=== PATIENT | female | born 1950 | race Caucasian/White ===

== ENCOUNTER 2020-07-08 13:16 | Outpatient (CLI) | payer MEDICARE, SELFPAY | END 2020-07-08 13:17 | disposition home or self-care (01) | LOC: ANHCOVIDVC 13:16 | PROVIDERS: PCP Family Medicine | DX: Z23 Encounter for immunization (principal) | CPT/HCPCS: 0001A; 91300 ==

== ENCOUNTER 2020-07-29 13:25 | Outpatient (CLI) | payer MEDICARE, SELFPAY | END 2020-07-29 13:26 | disposition home or self-care (01) | LOC: ANHCOVIDVC 13:26 | PROVIDERS: PCP Family Medicine | DX: Z23 Encounter for immunization (principal) | CPT/HCPCS: 0002A; 91300 ==

== ENCOUNTER 2022-10-07 13:59 | Emergency (ER) | payer MEDICARE, SELFPAY ==
--- NOTE | ~2022-10-07 | CT_ITS ---
EXAMINATION: CT abdomen pelvis wo con DATE: 10/07/2022 15:57 INDICATION: Right lower quadrant abdominal pain. TECHNIQUE: Computed tomography (CT) of the abdomen and pelvis was performed without intravenous contr ast. Automated exposure control and iterative reconstruction technique were employed. The dose-length product was 249.37 mGy-cm. COMPARISON: CT abdomen and pelvis 10/25/2017 FINDINGS: The visualized portions of the lung bases demonstrate mild atelectasis. No pleural effusion . The heart size is normal. No pericardial effusion. The liver is normal. There are changes of cholec ystectomy. The spleen, pancreas, and adrenal glands are normal. There are cysts in the kidneys measur ing up to 11 mm on the left. There is moderate right hydronephrosis and hydroureter. There is moderat e left hydronephrosis and hydroureter. An ileal conduit is noted. There is diverticulosis of the colo n without evidence of diverticulitis. The appendix is fluid-filled and dilated to 13 mm. There is fat stranding around the appendix. There are no pathologically enlarged lymph nodes. There is no free in traperitoneal fluid. There is mild chronic height loss of T11 and T12 vertebral bodies. There is a he aling insufficiency fracture of left parasymphyseal pubis. IMPRESSION: 1. Acute appendicitis. 2. Moderate bilateral hydronephrosis and hydroureter with ileal conduit. Reviewed, dictated and finalized at location A.
[2022-10-07 14:16] VITALS: BP 136/60; PULSE 103; RESP 16; TEMP 37.1; O2SAT 99
[2022-10-07] MEDS: MORPHINE SULFATE (*CRX) 2 MG/ML INJ IV PUSH (15:27)
[2022-10-07] MEDS: ACETAMINOPHEN 325 MG TABLET 650 MG PO (15:27)
[2022-10-07] MEDS: SODIUM CHLORIDE 0.9% IV 1,000 ML 999 ML IV CONT (15:27)
[2022-10-07 15:33] LABS: Basophils Percent Auto 0.3 % (0.2-1.2); Eosinophils Percent Auto 0.1 % (0-4.4); Hematocrit 31.4 % (37.0-47.0); Hemoglobin 10.2 g/dL (12.0-15.0); Immature Granulocyte Absolute 0.12 K/mm3 (0.00-0.031); Immature Granulocyte Percent A 0.8 % (0-0.5); Lymphocytes Percent Auto 6.3 % (18.3-44.2); Mean Corpuscular HGB Conc 32.5 g/dl (32-36); Mean Corpuscular Volume 89.2 fl (80-100); Monocytes Absolute Auto 1.2 K/mm3 (0.1-0.6); Monocytes Percent Auto 8.5 % (2.6-8.5); Neutrophils Absolute Auto 12.1 K/mm3 (1.3-6.7); Platelet Count Result 202 k/mm3 (150-375); Red Blood Count 3.52 M/mm3 (4.2-5.4); Red Cell Distribution Width 13.2 % (11.5-14.5); White Blood Count 14.4 K/mm3 (4.5-10.0)
[2022-10-07 15:48] LABS: Alanine Aminotransferase 11 U/L (6-35); Albumin Level 4.4 g/dL (3.5-5.1); Alkaline Phosphatase 86 U/L (38-126); Anion Gap 10 mmol/L (8-16); Aspartate Amino Transferase 29 U/L (14-36); Bilirubin,Total 0.5 mg/dL (0.2-1.3); Blood Urea Nitrogen 32 mg/dL (7-17); Calcium 9.3 mg/dL (8.4-10.2); Carbon Dioxide 17 mmol/L (22-30); Chloride 104 mmol/L (98-107); Estimated Glomerular Filt Rate 23; Glucose 177 mg/dL (65-110); Potassium 4.4 mmol/L (3.4-5.0); Sodium 131 mmol/L (137-145)
--- NOTE | 2022-10-07 16:08 | ED.GENADULT ---
HPI - General Adult General Chief complaint: Unspecified Stated complaint: right side pain post bone biopsy Time Seen by Provider: 10/07/22 14:32 History of Present Illness HPI narrative: Patient is a 72-year-old female with history of bladder cancer and rectal cancer who presents the ER with right lower quadrant abdominal pain. Pain worsening over the last 2 days. Located right lower quadrant worse with lifting her right leg. Patient has a ileal conduit. She has had a cystectomy and radiation to the pelvis. She recently had a pelvic biopsy of her pubic bone due to concern for a occult fracture versus new malignancy. She has results pending for tomorrow. Patient reports fever this morning. No chills. She has not treated her pain or fever. She initially went to urgent care and was referred here. Related Data Home Medications Medication Instructions Recorded Confirmed aspirin 81 mg tablet,delayed 81 mg PO DAILY 06/17/22 06/17/22 release (Adult Low Dose Aspirin) cholecalciferol (vitamin D3) 25 25 mcg PO DAILY 06/17/22 06/17/22 mcg (1,000 unit) capsule ferrous sulfate 325 mg (65 mg 325 mg PO BID 06/17/22 06/17/22 iron) tablet pantoprazole 40 mg tablet,delayed tablet PO 06/17/22 06/17/22 release vitamin B complex 1 tablet PO DAILY 06/17/22 06/17/22 Allergies Allergy/AdvReac Type Severity Reaction Status Date / Time lisinopril Allergy Unknown Cough Verified 10/07/22 16:28 Review of Systems Review of Systems: All systems reviewed & are unremarkable except as noted in HPI and below Constitutional: Constitutional: Denies chills and Reports fever(s) Cardiovascular: Cardiovascular: Denies chest pain and Denies radiating jaw, neck or arm pain Respiratory: Respiratory: Denies cough, Denies dyspnea and Denies wheezing Gastrointestinal: Gastrointestinal: Reports abdominal pain, Denies diarrhea, Denies nausea and Denies vomiting PMF Past Medical History Medical History (Updated 10/07/22 @ 17:56 by Flo Rosales MD) 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 Dyslipidemia Essential (primary) hypertension History of malignant neoplasm of anus Hypothyroidism, unspecified Type 2 diabetes mellitus with diabetic cataract Surgical History Surgical History (Updated 10/07/22 @ 17:51 by Flo Rosales MD) History of total cystectomy History of urostomy Family History Family History Sibling Family history of malignant neoplasm of ovary Social History Social History (Updated 06/17/22 @ 10:48 by Jorge Jaeger MA) Smoking status: Never smoker Second hand tobacco smoke exposure: No Alcohol intake: never Substance use: never Lack of Transportation: No Lack of Food: Never True Current Housing: I Have Housing Concerned About Future Housing: No Difficulty Paying Gas/Electric Bills: No Difficulty Paying for Meds: No Currently Unemployed: No Education: High School Diploma/GED Difficulty w/ Childcare or Family Care: No Spiritual care concerns: No Exam Narrative: GENERAL: Well-appearing, well-nourished, and in no acute distress. HEAD: Normocephalic, atraumatic. EYES: PERRL and EOMI. ENT: Mucous membranes moist. CHEST: Clear to auscultation. No respiratory distress. HEART: Regular rate and rhythm. No murmur heard. Normal peripheral pulses. ABDOMEN: Soft, tender palpation right lower quadrant with guarding, nondistended, normal active bowel sounds. EXTREMITIES: Normal range of motion. No edema. SKIN: Warm, dry, no rash. NEURO: Alert and oriented x3. PSYCH: Normal mood and affect. Course Course Emergency Course: Patient resting comfortably. General surgery consulted. Dr. Rosales has been in the patient's room and spoke with her. She has received IV Zosyn. Patient wishes to leave the hospital AMA says she can go home and feed her animals and arrange f
[2022-10-07] MEDS: PIPERACILLN/TAZ 3.375GM/NS50ML 3.375 GM/50 ML BAG IVPB (16:36)
--- NOTE | 2022-10-07 16:44 | PC.NURSE ---
Dr Rosales here to assess patient
[2022-10-07 17:12] VITALS: BP 131/66; PULSE 98; RESP 20; O2SAT 98
--- NOTE | 2022-10-07 17:13 | PC.NURSE ---
IV removed, patient signed AMA papers. Will return within the hour and call manager data warehouse for direct admission. patient verbalized understanding
--- NOTE | 2022-10-07 17:35 | PM.IMHP ---
H&P: HPI History of Present Illness Date/Time: 10/07/22 17:35 Chief Complaint: Right-sided abdominal pain Narrative: Patient is a 72-year-old woman who day before yesterday noticed a sharp pain in the left lower quadrant that lasted only a few seconds. This then moved to the mid abdomen. She has chronic pain in the mid abdomen anyway and this did not really seem out of the ordinary for what she has experienced before. Then yesterday, the pain moved to the right side of the abdomen and was associated with fever of 101?. The pain was persistent and she came to the emergency room today. Also noteworthy is that she had a bone marrow biopsy done a day or 2 before the onset of this pain. The puncture site for the bone biopsy was in the left suprapubic area. Patient has not had further fever and no nausea or vomiting. She has been afebrile in the emergency room but did have some tachycardia in the low 100s. Her white blood cell count was elevated to 14,400. She had a CT scan of the abdomen and pelvis that showed acute appendicitis with a 13 mm appendix but no appendicoliths. There was some periappendiceal stranding. I reviewed the CT scan and by my review this appears to be a retrocecal appendix. Patient has had significant past medical history. In the she had anal canal cancer treated with then I regimen of chemo radiation therapy to the pelvic area. In 2017 she was found to have cancer of the urinary bladder which extended to include the urethra. In January of 2018 she underwent radical cystectomy with anterior pelvic exenteration as the bladder cancer invaded her vagina. 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 She had some additional radiation therapy as there was a positive margin at the resection but not extensive radiation therapy due to her prior pelvic radiation therapy for anal canal cancer. Patient is admitted now for treatment of appendicitis. Review of Systems Review of Systems: All systems reviewed & are unremarkable except as noted in HPI and below (HPI and those items noted below) Constitutional: Constitutional: Reports as per HPI and Reports fever(s) Cardiovascular: Cardiovascular: Denies chest pain, Denies diaphoresis, Denies dyspnea and Denies paroxysmal nocturnal dyspnea Respiratory: Respiratory: Denies chest congestion, Denies cough and Denies dyspnea Gastrointestinal: Gastrointestinal: Reports as per HPI Genitourinary: Genitourinary: Reports as per HPI Integumentary/Breasts: Skin/Breast: Denies lesions and Denies rash PMFSH Past Medical History Medical History (Updated 10/07/22 @ 17:56 by Flo Rosales MD) 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 Dyslipidemia Essential (primary) hypertension History of malignant neoplasm of anus Hypothyroidism, unspecified Type 2 diabetes mellitus with diabetic cataract Surgical History Surgical History (Updated 10/07/22 @ 17:51 by Flo Rosales MD) History of total cystectomy History of urostomy Family History Family History Sibling Family history of malignant neoplasm of ovary Social History Social History (Updated 06/17/22 @ 10:48 by Jorge Jaeger MA) Smoking status: Never smoker Second hand tobacco smoke exposure: No Alcohol intake: never Meds Home Medications and Allergies Home Medications Medication Instructions Recorded Confirmed Type alcohol swabs 1 pad topical BID #200 07/28/19 06/17/22 Rx blood glucose control, normal #1 07/28/19 06/17/22 Rx (Accu-Chek SmartView Control Solution) blood sugar diagnostic (Accu-Chek #200 07/28/19 06/17/22 Rx Ginette Plus test strips) blood-glucose meter (Accu-Chek #1 07/28/19 06/17/22 Rx Ginette Plus Meter) lancets (Accu-Chek Softclix #200 07/28/19 06/17/22 Rx Lancets) aspirin 81 mg tablet,delayed 81 mg PO DAILY 06/17/22 06/17/22 His
== END 2022-10-07 17:14 | disposition left against medical advice (07) ==
PROVIDERS: Emergency Provider Emergency Medicine; PCP Family Medicine
DX: K35.80 Unspecified acute appendicitis (principal); C67.9 Malignant neoplasm of bladder, unspecified; E11.22 Type 2 diabetes mellitus with diabetic chronic kidney disease; I12.9 Hypertensive chronic kidney disease with stage 1 through stage 4 chronic kidney disease, or unspecified chronic kidney disease; N18.4 Chronic kidney disease, stage 4 (severe); E78.5 Hyperlipidemia, unspecified; E11.36 Type 2 diabetes mellitus with diabetic cataract; H26.9 Unspecified cataract; Z93.6 Other artificial openings of urinary tract status; Z90.6 Acquired absence of other parts of urinary tract; Z85.048 Personal history of other malignant neoplasm of rectum, rectosigmoid junction, and anus; Z92.21 Personal history of antineoplastic chemotherapy; Z92.3 Personal history of irradiation; Z79.82 Long term (current) use of aspirin
CPT/HCPCS: 36415; 74176; 80053; 85025; 96361; 96365; 96375; 99284; A9270; J2270; J2543; J7030

== ENCOUNTER 2022-10-07 20:29 | Observation (INO) | payer MEDICARE, SELFPAY ==
--- NOTE | ~2022-10-07 | CT_ITS ---
EXAMINATION: CT abdomen pelvis wo con DATE: 10/08/2022 08:07 INDICATION: Abdominal pain. TECHNIQUE: Computed tomography (CT) of the abdomen and pelvis was performed without intravenous contr ast. Automated exposure control and iterative reconstruction technique were employed. The dose-length product was 224.33 mGy-cm. COMPARISON: CT abdomen and pelvis 10/07/2022, 10/25/2017 FINDINGS: The visualized portions of the lung bases demonstrate mild atelectasis. There is a chronic 5 mm nodule in right lower lobe, likely benign. No pleural effusion. The heart size is normal. There are coronary artery calcifications. No pericardial effusion. The liver is normal. There are changes o f cholecystectomy. The spleen, pancreas, and adrenal glands are normal. There are cysts in the kidney s measuring up to 11 mm on the left. There is mild right hydronephrosis and hydroureter. There is mil d left hydronephrosis and hydroureter. There is an ileal conduit. There is diverticulosis of the colo n without evidence of diverticulitis. The appendix is fluid-filled and dilated to 13 mm with surround ing fat stranding, consistent with appendicitis. There are no pathologically enlarged lymph nodes. Th ere is no free intraperitoneal fluid. There is a healing insufficiency fracture of left parasymphysea l pubis. There are chronic bilateral L5 pars defects. There is mild chronic height loss of T11 and T1 2 vertebral bodies. IMPRESSION: 1. Stable acute appendicitis. 2. Mild bilateral hydronephrosis and hydroureter with interval improvement. Ileal conduit. Reviewed, dictated and finalized at location A. IMPRESSION: 1. Stable acute appendicitis. 2. Mild bilateral hydronephrosis and hydroureter with interval improvement. Ile al conduit.
[2022-10-07 19:45] VITALS: BP 102/85; PULSE 98; RESP 17; TEMP 36.2; O2SAT 100; BMI 21.1
--- NOTE | 2022-10-07 20:05 | ADMGEN ---
This patient, Caitlin Nixon, was admitted to 2 Medical Room 240-01. Patient/family oriented to hospital policies and general routines including ID bracelet, bed and alarms, visiting hours, pain management, procedures, bathroom and other care routines, personal items, smoking policy, room service/diet, and visiting hours. Information on how to activate the Rapid Response Team has been discussed. Patient/Family are encouraged to report perceived risks to care and to ask questions if they do not understand what they are told or what they should do.
--- NOTE | 2022-10-07 21:00 | PM.IMCN ---
Assessment and Plan Assessment and plan (1) Appendicitis: Qualifiers: Acute appendicitis type: unspecified acute appendicitis type Appendicitis type: acute appendicitis Qualified Code(s): K35.80 - Unspecified acute appendicitis Code(s): K37 - Unspecified appendicitis Status: Inactive Assessment and Plan: Management per primary service. Currently patient receiving IV fluid, IV antibiotics and pain management. (2) Essential (primary) hypertension: Code(s): I10 - Essential (primary) hypertension Status: Acute Assessment and Plan: Patient is acutely ill. Hold blood pressure medication for BP less than 140/90. (3) DM type 2 causing CKD stage 4: Qualifiers: Diabetes mellitus group home insulin use: without medical terminologist use Qualified Code(s): E11.22 - Type 2 diabetes mellitus with diabetic chronic kidney disease; N18.4 - Chronic kidney disease, stage 4 (severe) Code(s): E11.22 - Type 2 diabetes mellitus with diabetic chronic kidney disease; N18.4 - Chronic kidney disease, stage 4 (severe) Status: Chronic Assessment and Plan: Currently patient is NPO for bowel rest. Will monitor the Accu-Chek every 6 hours. Anti diabetic medications currently on hold. Monitor Accu-Chek. Accu-Cheks in the 1 99 range. Blood glucose in the 133-177 range. (4) Dyslipidemia: Code(s): E78.5 - Hyperlipidemia, unspecified Status: Acute Assessment and Plan: Resume statin when oral intake is allowed. (5) History of urostomy: Code(s): Z98.890 - Other specified postprocedural states Status: Chronic Assessment and Plan: Urostomy is patent with clear urine in bag. (6) History of total cystectomy: Code(s): Z90.6 - Acquired absence of other parts of urinary tract Status: Chronic (7) History of malignant neoplasm of anus: Code(s): Z85.048 - Personal history of other malignant neoplasm of rectum, rectosigmoid junction, and anus Status: Chronic (8) Other specified hypothyroidism: Code(s): E03.8 - Other specified hypothyroidism Status: Acute Assessment and Plan: Resume levothyroxine when oral intake is allowed. (9) Chronic GERD: Code(s): K21.9 - Gastro-esophageal reflux disease without esophagitis Status: Acute Assessment and Plan: Give Pepcid IV while NPO. (10) CKD (chronic kidney disease): Code(s): N18.9 - Chronic kidney disease, unspecified Status: Acute Assessment and Plan: Baseline kidney function stable with creatinine in the 2-2.1 range over the past 3 years. Avoid nephrotoxic medication. Please renally dose medication. Monitor intake and output closely. Consider starting bicarbonate at supplement when oral intake is allowed. Patient has metabolic acidosis with a carbon dioxide of 18. Plan DVT prophylaxis: Rojas vasquez. Code status full code. [facility] Data of Consult Consult date: 10/08/22 Requesting Physician: Flo Rosales MD Primary Care Provider: Sharon Nye MD Consult Narrative Reason for consult: management of medical conditions Narrative: Caitlin Nixon is a 72 year old female with a past medical history including but not limtied to HTN, T2DM, dyslipidemia, hypothyroidism, anal cancer s/p chemothrapy and radiation, bladder cancer s/p radical cystectomy with anterior pelvic exenteration -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 CT scan is confirming acute appendicitis. Patient is scheduled for appendectomy and currently being managed with NPO, IV fluids, IV antibiotics. Originally the patient presented on the day before yesterday a sharp pain in the left lower quadrant that lasted only a few seconds.? This then moved to the mid abdomen.? This is similar to her usual chronic mid abdominal pain. Yesterday , the pain moved to the right side of the abdomen and was assoc
[2022-10-07] MEDS: SODIUM CHLORIDE 0.9% IV 1,000 ML 100 ML IV CONT (22:35)
[2022-10-07] MEDS: PIPERACILLIN/TAZ 2.25G/NS 50ML 2.25 GM/50 ML BAG IVPB (22:35)
[2022-10-07] MEDS: FAMOTIDINE 20 MG/2 ML VIAL IV PUSH (22:36)
[2022-10-07 23:50] LABS: Glucose Point of Care 199 mg/dl (65-105)
[2022-10-08 04:58] LABS: Hematocrit 27.5 % (37.0-47.0); Mean Corpuscular HGB Conc 32.7 g/dl (32-36); Mean Corpuscular Hemoglobin 29.4 pg (26-34); Mean Corpuscular Volume 89.9 fl (80-100); Mean Platelet Volume 10.1 fl (7.4-10.4); Platelet Count Result 193 k/mm3 (150-375); Red Blood Count 3.06 M/mm3 (4.2-5.4); Red Cell Distribution Width 13.2 % (11.5-14.5); White Blood Count 10.1 K/mm3 (4.5-10.0)
[2022-10-08 05:16] VITALS: BP 113/48; PULSE 80; RESP 17; TEMP 36.8; O2SAT 100
[2022-10-08 05:25] LABS: Glucose Point of Care 120 mg/dl (65-105)
[2022-10-08 05:25] LABS: Iron 23 ug/dL (37-170)
[2022-10-08] MEDS: PIPERACILLIN/TAZ 2.25G/NS 50ML 2.25 GM/50 ML BAG IVPB ×3 (05:25→21:41)
[2022-10-08 05:35] LABS: Percent Iron Saturation 13 % (20-50)
[2022-10-08 05:44] LABS: Free T4 Free Thyroxine 1.49 ng/mL (0.78-2.19)
[2022-10-08 06:03] LABS: Alanine Aminotransferase 9 U/L (6-35); Albumin Level 3.4 g/dL (3.5-5.1); Alkaline Phosphatase 73 U/L (38-126); Anion Gap 8 mmol/L (8-16); Aspartate Amino Transferase 22 U/L (14-36); Bilirubin,Total 0.3 mg/dL (0.2-1.3); Blood Urea Nitrogen 31 mg/dL (7-17); Calcium 8.6 mg/dL (8.4-10.2); Carbon Dioxide 18 mmol/L (22-30); Chloride 111 mmol/L (98-107); Estimated CRCL calculation 18 ml/min; Estimated Glomerular Filt Rate 23; Glucose 133 mg/dL (65-110); Potassium 4.2 mmol/L (3.4-5.0); Sodium 137 mmol/L (137-145)
--- NOTE | 2022-10-08 07:14 | PM.IMPN ---
Progress Note: A&P Assessment and Plan (1) Appendicitis with nonoperative management: Code(s): K37 - Unspecified appendicitis Status: Acute Assessment and Plan: Patient admitted for acute appendicitis felt to be retrocecal by General surgery Dr. Rosales. Due to complicated abdominal surgery history shared decision making between surgeon and patient has yielded decision to opt non operative management at this time. Patient is on IV fluids and IV antibiotics. She will be allowed a diet today. (2) DM type 2 causing CKD stage 4: Qualifiers: Diabetes mellitus jail insulin use: without terminal make up operator use Qualified Code(s): E11.22 - Type 2 diabetes mellitus with diabetic chronic kidney disease; N18.4 - Chronic kidney disease, stage 4 (severe) Code(s): E11.22 - Type 2 diabetes mellitus with diabetic chronic kidney disease; N18.4 - Chronic kidney disease, stage 4 (severe) Status: Chronic Assessment and Plan: Baseline creatinine around 2. Will dose insulin via sliding and renally dose medications (3) History of urostomy: Code(s): Z98.890 - Other specified postprocedural states Status: Chronic Assessment and Plan: Urostomy patent draining clear yellow urine (4) History of malignant neoplasm of anus: Code(s): Z85.048 - Personal history of other malignant neoplasm of rectum, rectosigmoid junction, and anus Status: Chronic Assessment and Plan: Significant prior abdominal surgery with bladder removal due to prior anal cancer. For this reason surgery would be complicated means of treating appendicitis. Plan Continue IV antibiotics per primary service Advanced diet as tolerated per primary service Renally dose medications and avoid nephrotoxic when possible Time Spent With Patient Time with patient: 25 - 35 minutes Subjective Date/time seen: 10/08/22 07:14 Interval history: This is a 72-year-old female patient with a complicated past surgical history of abdominal surgeries related to cancer who was admitted to the hospital under the surgery service for acute appendicitis with hospitalist consult requested for medical management. Patient has elected to attempt IV antibiotic treatment of appendicitis and defer surgery at this time. He currently complains only of mild aching pain in her right lower abdomen. Patient has ileal conduit due to bladder resection prior surgeries. Patient notes normal urine this time. Patient denies any fever or chills. She denies any acute concerns. Review of Systems Review of Systems: All systems reviewed & are unremarkable except as noted in HPI and below Exam Narrative: GENERAL: This is a thin, chronically-ill female in no acute distress. Patient is in a good mood and talkative/appreciative. HEENT: Pupils are equal, round, and reactive to light. Conjunctivae are pink. HEART: Cardiac exam reveals a regular rhythm and rate without murmur or gallop. There is no carotid or abdominal bruits. LUNGS: Clear to auscultation bilaterally; no wheezing, crackles or rhonchi. ABDOMEN: Reveals an ileal conduit with clear yellow urine in bag; normoactive bowel sounds, soft, nontender, no organomegaly. Mild right lower quadrant tenderness to palpation without rebound or guarding. EXTREMITIES: Lower extremities reveal no edema, 2+ pulses. NEUROLOGIC: AAOX3; grossly non focal. ? Objective Data Vital Signs Vital Signs: Vital Signs - 24 hr 10/07/22 19:45 10/07/22 20:00 10/08/22 05:16 Temperature 36.2 C L 36.8 C Pulse Rate 98 80 Respiratory Rate 17 17 Blood Pressure 102/85 113/48 L Pulse Oximetry 100 100 Oxygen Delivery Room Air Intake/Output Intake/Output: Intake & Output 10/05/22 10/06/22 10/07/22 10/08/22 23:59 23:59 23:59 23:59 Intake Total 100 Output Total 1050 Balance -950 Meds/Results Medications: Active Medications Generic Name Dose Route Start Last Admin Trade Name Freq PRN Reason St
--- NOTE | 2022-10-08 08:04 | PM.PNGS ---
Progress Note: A&P Assessment and Plan (1) Appendicitis with nonoperative management: Code(s): K37 - Unspecified appendicitis Status: Acute Assessment and Plan: Feels better and white blood cell count is slightly lower today. Continue IV Zosyn. Will start clear liquid diet. If continues to improve, can probably go home this weekend. Recheck labs and exam again tomorrow. Hospitalist consultation appreciated. (2) History of external beam radiation therapy: Code(s): Z92.3 - Personal history of irradiation Status: Chronic (3) History of urostomy: Code(s): Z98.890 - Other specified postprocedural states Status: Chronic (4) DM type 2 causing CKD stage 4: Qualifiers: Diabetes mellitus long term care social worker insulin use: without group home use Qualified Code(s): E11.22 - Type 2 diabetes mellitus with diabetic chronic kidney disease; N18.4 - Chronic kidney disease, stage 4 (severe) Code(s): E11.22 - Type 2 diabetes mellitus with diabetic chronic kidney disease; N18.4 - Chronic kidney disease, stage 4 (severe) Status: Chronic Subjective Subjective Date/Time Seen: 10/08/22 08:04 Patient reports: no new complaints, feels better, pain is less and afebrile Review of Systems Review of Systems: All systems reviewed & are unremarkable except as noted in HPI and below (HPI) Exam Const: General: comfortable and no acute distress Orientation/consciousness: patient oriented x3 GI: Inspection: non-distended, scaphoid, scar, no visible herniation and other (Urostomy right lower quadrant with urine in bag) GI Palp: Yes Soft to palpation, Yes Tenderness to palpation present (GI) (Less tender than yesterday), No Guarding due to palpation present (GI) and No Rebound tenderness present Auscultation: normal bowel sounds Neuro: General: patient oriented x3 and no focal motor deficits Extrem: General: no calf tenderness and no edema Psych: Affect: normal affect Insight: Good insight present (Psych) Judgement: Good judgement present (Psych) Objective Data Vital Signs Vital Signs: Vital Signs - 24 hr 10/07/22 19:45 10/07/22 20:00 10/08/22 05:16 Temperature 36.2 C L 36.8 C Pulse Rate 98 80 Respiratory Rate 17 17 Blood Pressure 102/85 113/48 L Pulse Oximetry 100 100 Oxygen Delivery Room Air Intake/Output Intake/Output: Intake & Output 10/05/22 10/06/22 10/07/22 10/08/22 23:59 23:59 23:59 23:59 Intake Total 100 Output Total 1050 Balance -950 Meds/Results Medications: Active Medications Generic Name Dose Route Start Last Admin Trade Name Freq PRN Reason Stop Dose Admin Acetaminophen 650 mg 10/07/22 20:41 Acetaminophen 650 Mg Suppository RECTAL Q6H PRN Mild Pain (1-3) or Fever Aspirin 81 mg 10/08/22 09:00 Aspirin 81 Mg Enteric Tablet PO DAILY DESTINY Dextrose 12.5 gm 10/07/22 20:40 Dextrose 50% 25 Gm/50 Ml Syringe IV PUSH PRN PRN Hypoglycemia Protocol Enoxaparin Sodium 40 mg 10/08/22 09:00 Enoxaparin 40 Mg/0.4 Ml Syringe SUB-Q DAILY DESTINY Fentanyl Citrate 25 mcg 10/07/22 20:38 Fentanyl Citrate Inj (*Crx) 100 Mcg/2 Ml Vial IV PUSH Q4H PRN Pain Rated 7-10 Fentanyl Citrate 12.5 mcg 10/07/22 20:39 Fentanyl Citrate Inj (*Crx) 100 Mcg/2 Ml Vial IV PUSH Q4H PRN Pain Rated 7-10 Glucagon 1 mg 10/07/22 20:40 Glucagon For Inj 1 Mg Vial IM PRN PRN Hypoglycemia Protocol Glucose 15 gm 10/07/22 20:40 Glucose Oral Gel 15 Gm Of Glucse In 37.5 Gm Tube PO PRN PRN Hypoglycemia Protocol Dextrose 1,000 mls @ 100 mls/hr 10/07/22 20:40 Dextrose 5% 1,000 Ml IVPB PRN PRN Hypoglycemia Protocol Sodium Chloride 1,000 mls @ 80 mls/hr 10/07/22 20:50 10/07/22 22:35 Normal Saline Iv IV CONT 100 mls/hr .[id number] DESTINY Administration Piperacillin Sod/Tazobactam Sod 2.25 gm in 50 mls @ 100 mls/hr 10/08/22 06:
[2022-10-08] MEDS: PANTOPRAZOLE 40 MG TABLET PO (08:39)
[2022-10-08] MEDS: ASPIRIN 81 MG ENTERIC TABLET PO (08:39)
[2022-10-08] MEDS: VALSARTAN 80 MG TABLET BY MOUTH (08:39)
[2022-10-08] MEDS: LEVOTHYROXINE SODIUM 125 MCG TABLET BY MOUTH (08:40)
[2022-10-08] MEDS: ENOXAPARIN 30 MG/0.3 ML SYRINGE SUB-Q (08:40)
[2022-10-08] MEDS: SODIUM CHLORIDE 0.9% IV 1,000 ML 80 ML IV CONT (10:00)
[2022-10-08 11:58] LABS: Glucose Point of Care 129 mg/dl (65-105)
[2022-10-08 14:35] VITALS: BP 106/49; PULSE 73; RESP 17; TEMP 36.9; O2SAT 99
[2022-10-08] MEDS: FERROUS SULFATE 324 MG TABLET PO (16:57)
[2022-10-08 18:40] LABS: Glucose Point of Care 107 mg/dl (65-105)
[2022-10-08 19:20] VITALS: BP 122/48; PULSE 77; RESP 18; TEMP 36.6; O2SAT 100
[2022-10-09 00:15] LABS: Glucose Point of Care 99 mg/dl (65-105)
[2022-10-09] MEDS: SODIUM CHLORIDE 0.9% IV 1,000 ML 80 ML IV CONT (01:48)
[2022-10-09 05:05] LABS: Hematocrit 25.9 % (37.0-47.0); Hemoglobin 8.1 g/dL (12.0-15.0); Mean Corpuscular HGB Conc 31.3 g/dl (32-36); Mean Corpuscular Hemoglobin 28.6 pg (26-34); Mean Corpuscular Volume 91.5 fl (80-100); Platelet Count Result 177 k/mm3 (150-375); Red Blood Count 2.83 M/mm3 (4.2-5.4); Red Cell Distribution Width 13.3 % (11.5-14.5); White Blood Count 6.5 K/mm3 (4.5-10.0)
[2022-10-09 05:19] LABS: Anion Gap 5 mmol/L (8-16); Blood Urea Nitrogen 23 mg/dL (7-17); Calcium 8.6 mg/dL (8.4-10.2); Carbon Dioxide 18 mmol/L (22-30); Chloride 116 mmol/L (98-107); Estimated CRCL calculation 17 ml/min; Estimated Glomerular Filt Rate 22; Glucose 96 mg/dL (65-110); Potassium 4.6 mmol/L (3.4-5.0); Sodium 139 mmol/L (137-145)
[2022-10-09] MEDS: PIPERACILLIN/TAZ 2.25G/NS 50ML 2.25 GM/50 ML BAG IVPB ×3 (05:43→21:59)
[2022-10-09] MEDS: LEVOTHYROXINE SODIUM 125 MCG TABLET BY MOUTH (05:43)
[2022-10-09 05:53] VITALS: BP 123/52; PULSE 69; RESP 18; TEMP 36.4; O2SAT 100
[2022-10-09 06:14] LABS: Glucose Point of Care 99 mg/dl (65-105)
[2022-10-09 08:00] VITALS: O2SAT 99
[2022-10-09] MEDS: ATORVASTATIN 10 MG TABLET PO (08:08)
[2022-10-09] MEDS: ASPIRIN 81 MG ENTERIC TABLET PO (08:08)
[2022-10-09] MEDS: FERROUS SULFATE 324 MG TABLET PO ×2 (08:09→17:01)
[2022-10-09] MEDS: VALSARTAN 80 MG TABLET BY MOUTH (08:09)
[2022-10-09] MEDS: PANTOPRAZOLE 40 MG TABLET PO (08:09)
[2022-10-09] MEDS: ENOXAPARIN 30 MG/0.3 ML SYRINGE SUB-Q (08:09)
[2022-10-09] MEDS: VITAMIN B COMPLEX CAPSULE 1 CAP PO (08:09)
[2022-10-09] MEDS: CHOLECALCIFEROL 1,000 UNITS TABLET 1000 UNITS PO (08:09)
--- NOTE | 2022-10-09 09:17 | PM.IMPN ---
Progress Note: A&P Assessment and Plan (1) Appendicitis with nonoperative management: Code(s): K37 - Unspecified appendicitis Status: Acute Assessment and Plan: Patient admitted for acute appendicitis felt to be retrocecal by General surgery Dr. Rosales.? Due to complicated abdominal surgery history shared decision making between surgeon and patient has yielded decision to opt non operative management at this time.? Patient is on IV fluids and IV antibiotics.? Patient has developed diarrhea for which loperamide and probiotic have been ordered. Diet advanced to low carb diabetic diet. (2) Anemia: Code(s): D64.9 - Anemia, unspecified Status: Acute Assessment and Plan: H&H drop from 10.2/31.4 on admit to 8.1/25.9 today. Patient asymptomatic with no external bleeding. Ordered guiac stools and additional labs. Consider transfusion if continues to drop. (3) DM type 2 causing CKD stage 4: Qualifiers: Diabetes mellitus terminal clerk insulin use: without terminal clerk use Qualified Code(s): E11.22 - Type 2 diabetes mellitus with diabetic chronic kidney disease; N18.4 - Chronic kidney disease, stage 4 (severe) Code(s): E11.22 - Type 2 diabetes mellitus with diabetic chronic kidney disease; N18.4 - Chronic kidney disease, stage 4 (severe) Status: Chronic Assessment and Plan: Baseline creatinine around 2.? Will dose insulin via sliding and renally dose medications. (4) History of urostomy: Code(s): Z98.890 - Other specified postprocedural states Status: Chronic Assessment and Plan: Urostomy patent draining clear yellow urine (5) Diarrhea: Qualifiers: Diarrhea type: unspecified type Qualified Code(s): R19.7 - Diarrhea, unspecified Code(s): R19.7 - Diarrhea, unspecified Status: Acute Assessment and Plan: Patient upset about diarrhea and asking for anti diarrheal. Loperamide ordered. Probiotic ordered. Discussion held with patient that antibiotics may be worsening diarrhea and she understands the importance of continued antibiotic therapy. She denies any fever or abdominal pain and white blood cell count is stable unlikely to be C diff. (6) History of malignant neoplasm of anus: Code(s): Z85.048 - Personal history of other malignant neoplasm of rectum, rectosigmoid junction, and anus Status: Chronic Assessment and Plan: Significant prior abdominal surgery with bladder removal due to prior anal cancer.? For this reason surgery would be complicated means of treating appendicitis. Plan Continue antibiotics per primary service Investigate cause of drop in hemoglobin and hematocrit including checking guaiac of next stools Advanced diet as tolerated per primary service with new orders for low carb diabetic diet initiated today Renally dose medications and avoid nephrotoxic meds when possible Time Spent With Patient Time with patient: 25 - 35 minutes Subjective Date/time seen: 10/09/22 09:17 Interval history: This morning the patient seems very upset regarding the dietary offering see while she has been on a liquid diet. Patient states that everything they tried to send her has too many carbohydrates and she likes to keep her diabetes under control to preserve her to renal function. Also noted on morning labs was a decrease in hemoglobin hematocrit without obvious source of bleeding. Patient notes that she developed multiple episodes of diarrhea 3 times yesterday and twice so far today. She does not believe these have blood in them and they are not black. Patient was also upset at her IV line had infiltrated and her clothes were missing. Her clothes were later found locked in a cabinet in her room which helped her feel better. Overall patient states that her abdominal pain is decreased she has fever chills no nausea or vomiting. She is requesting anti diarrheal medication. She is aware she needs to continue IV antibiotics at t
[2022-10-09] MEDS: LOPERAMIDE HCL 2 MG CAPSULE PO (09:41)
--- NOTE | 2022-10-09 11:17 | PM.PNGS ---
Progress Note: A&P Assessment and Plan (1) Appendicitis with nonoperative management: Code(s): K37 - Unspecified appendicitis Status: Acute Assessment and Plan: CT scan done yesterday showed appendicitis without change. No worse. Clinically patient is much improved. Has no abdominal tenderness. White blood cell count is normal. She is up and around and active. She tolerated clear liquids well. Her only complaint is diarrhea as noted below. This could be a consequence of appendicitis or of antibiotic therapy. She is not having frequent stools just loose stools. Will watch for now. She is also anemic and this is being evaluated by the hospitalist. Will advance to diabetic diet but low carb per her wishes. Continue to follow serial exam labs and any imaging and may be needed. Hopefully will be able to be discharged this weekend on oral antibiotics. (2) Diarrhea: Qualifiers: Diarrhea type: unspecified type Qualified Code(s): R19.7 - Diarrhea, unspecified Code(s): R19.7 - Diarrhea, unspecified Status: Acute Assessment and Plan: Loose stools but not particularly frequent. A total of 5 including yesterday. Probably a consequence of the appendicitis and should resolve. Advise taking 1 or 2 Imodium with each diarrheal stool. (3) DM type 2 causing CKD stage 4: Qualifiers: Diabetes mellitus mcfp insulin use: without mcfp use Qualified Code(s): E11.22 - Type 2 diabetes mellitus with diabetic chronic kidney disease; N18.4 - Chronic kidney disease, stage 4 (severe) Code(s): E11.22 - Type 2 diabetes mellitus with diabetic chronic kidney disease; N18.4 - Chronic kidney disease, stage 4 (severe) Status: Chronic (4) History of urostomy: Code(s): Z98.890 - Other specified postprocedural states Status: Chronic (5) History of external beam radiation therapy: Code(s): Z92.3 - Personal history of irradiation Status: Chronic Subjective Subjective Date/Time Seen: 10/09/22 11:17 Patient reports: feels better, pain is less (No abdominal pain, abdomen feels fine), tolerating liquids well, diarrhea (2 diarrheal stools today, 3 yesterday) and afebrile Review of Systems Review of Systems: All systems reviewed & are unremarkable except as noted in HPI and below (HPI) Exam Const: General: comfortable, no acute distress, alert, awake and Physically active Nutritional Appearance: thin Orientation/consciousness: patient oriented x3 GI: Inspection: non-distended, scaphoid, scar, no visible herniation and other (Urostomy working well) GI Palp: Yes Soft to palpation, No Tenderness to palpation present (GI), No Guarding due to palpation present (GI), No Palpable mass present and No Rebound tenderness present Auscultation: normoactive bowel sounds Neuro: General: patient oriented x3 and no focal motor deficits Extrem: General: no calf tenderness and no edema Psych: Affect: normal affect Insight: Good insight present (Psych) Judgement: Good judgement present (Psych) Objective Data Vital Signs Vital Signs: Vital Signs - 24 hr 10/08/22 14:35 10/08/22 19:20 10/08/22 20:00 Temperature 36.9 C 36.6 C Pulse Rate 73 77 Respiratory Rate 17 18 Blood Pressure 106/49 L 122/48 L Pulse Oximetry 99 100 Oxygen Delivery Room Air 10/09/22 05:53 Temperature 36.4 C L Pulse Rate 69 Respiratory Rate 18 Blood Pressure 123/52 L Pulse Oximetry 100 Oxygen Delivery Intake/Output Intake/Output: Intake & Output 10/06/22 10/07/22 10/08/22 10/09/22 23:59 23:59 23:59 23:59 Intake Total 4650 1560 Output Total 1840 750 Balance 2810 810 Meds/Results Medications: Active Medications Generic Name Dose Route Start Last Admin Trade Name Freq PRN Reason Stop Dose Admin Acetaminophen 500 mg 10/09/22 11:12 Acetaminophen 500 Mg Tablet PO Q6H PRN Mild Pain (1-3) or Fever Hydrocodone Bitart/Acetaminophen 1
[2022-10-09 11:37] LABS: IFOB Positive Control Positive; Immunochemical Fecal Occult Bl Negative (N)
[2022-10-09 12:33] LABS: Glucose Point of Care 83 mg/dl (65-105)
[2022-10-09] MEDS: ACIDOPHILUS/BULGARICUS CHEWABLE TABLET 1 TABLET PO ×3 (13:24→21:58)
[2022-10-09 14:22] VITALS: BP 111/52; PULSE 83; RESP 18; TEMP 36.6; O2SAT 99
[2022-10-09] MEDS: LOPERAMIDE HCL 2 MG CAPSULE 4 MG PO (15:47)
--- NOTE | 2022-10-09 15:47 | PM.IMCN ---
Assessment and Plan Assessment and plan (1) Appendicitis with nonoperative management: Code(s): K37 - Unspecified appendicitis Status: Acute Assessment and Plan: Patient admitted for acute appendicitis felt to be retrocecal by General surgery Dr. Rosales.? Due to complicated abdominal surgery history shared decision making between surgeon and patient has yielded decision to opt non operative management at this time.? Patient is on IV fluids and IV antibiotics.? Patient has developed diarrhea for which loperamide and probiotic have been ordered. Diet advanced to low carb diabetic diet. (2) Anemia: Code(s): D64.9 - Anemia, unspecified Status: Acute Assessment and Plan: H&H drop from 10.2/31.4 on admit to 8.1/25.9 today. Patient asymptomatic with no external bleeding. Ordered guiac stools and additional labs. Consider transfusion if continues to drop. (3) DM type 2 causing CKD stage 4: Qualifiers: Diabetes mellitus mcc insulin use: without remote computer terminal operator use Qualified Code(s): E11.22 - Type 2 diabetes mellitus with diabetic chronic kidney disease; N18.4 - Chronic kidney disease, stage 4 (severe) Code(s): E11.22 - Type 2 diabetes mellitus with diabetic chronic kidney disease; N18.4 - Chronic kidney disease, stage 4 (severe) Status: Chronic Assessment and Plan: Baseline creatinine around 2.? Will dose insulin via sliding and renally dose medications. (4) History of urostomy: Code(s): Z98.890 - Other specified postprocedural states Status: Chronic Assessment and Plan: Urostomy patent draining clear yellow urine (5) Diarrhea: Qualifiers: Diarrhea type: unspecified type Qualified Code(s): R19.7 - Diarrhea, unspecified Code(s): R19.7 - Diarrhea, unspecified Status: Acute Assessment and Plan: Patient upset about diarrhea and asking for anti diarrheal. Loperamide ordered. Probiotic ordered. Discussion held with patient that antibiotics may be worsening diarrhea and she understands the importance of continued antibiotic therapy. She denies any fever or abdominal pain and white blood cell count is stable unlikely to be C diff. (6) History of malignant neoplasm of anus: Code(s): Z85.048 - Personal history of other malignant neoplasm of rectum, rectosigmoid junction, and anus Status: Chronic Assessment and Plan: Significant prior abdominal surgery with bladder removal due to prior anal cancer.? For this reason surgery would be complicated means of treating appendicitis. Plan Continue antibiotics per primary service Investigate cause of drop in hemoglobin and hematocrit including checking guaiac of next stools Advanced diet as tolerated per primary service with new orders for low carb diabetic diet initiated today Renally dose medications and avoid nephrotoxic meds when possible HPI Data of Consult Consult date: 10/09/22 Requesting Physician: lFo Rosales MD Primary Care Provider: Sharon Nye MD Consult Narrative Narrative: Caitlin Nixon is a 72 year old female w/ medical history including but not limtied to HTN, T2DM, dyslipidemia, hypothyroidism, anal cancer s/p chemothrapy and radiation, bladder cancer s/p radical cystectomy with anterior pelvic exenteration -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 CT scan is confirming acute appendicitis. Patient is scheduled for appendectomy and currently being managed with NPO, IV fluids, IV antibiotics. Originally the patient presented on the day before yesterday a sharp pain in the left lower quadrant that lasted only a few seconds.? This then moved to the mid abdomen.? This is similar to her usual chronic mid abdominal pain. Yesterday , the pain moved to the right side of the abdomen and was associated with fever of 101?.? The pain was persistent and she came to the emergency room tod
[2022-10-09] MEDS: SODIUM CHLORIDE 0.9% IV 1,000 ML 50 ML IV CONT (19:15)
[2022-10-09 20:40] VITALS: BP 113/55; PULSE 71; RESP 16; TEMP 36.4; O2SAT 99
[2022-10-09 23:59] LABS: Glucose Point of Care 120 mg/dl (65-105)
[2022-10-10] MEDS: LOPERAMIDE HCL 2 MG CAPSULE 4 MG PO ×4 (04:38→22:35)
[2022-10-10 05:13] VITALS: BP 130/57; PULSE 65; RESP 16; TEMP 36.6; O2SAT 99
[2022-10-10 05:33] LABS: Hematocrit 24.4 % (37.0-47.0); Hemoglobin 7.6 g/dL (12.0-15.0); Mean Corpuscular HGB Conc 31.1 g/dl (32-36); Mean Corpuscular Hemoglobin 28.6 pg (26-34); Mean Corpuscular Volume 91.7 fl (80-100); Mean Platelet Volume 10.1 fl (7.4-10.4); Platelet Count Result 173 k/mm3 (150-375); Red Blood Count 2.66 M/mm3 (4.2-5.4); Red Cell Distribution Width 13.3 % (11.5-14.5); White Blood Count 5.2 K/mm3 (4.5-10.0)
[2022-10-10 05:45] LABS: Anion Gap 7 mmol/L (8-16); Blood Urea Nitrogen 22 mg/dL (7-17); Calcium 8.5 mg/dL (8.4-10.2); Carbon Dioxide 16 mmol/L (22-30); Chloride 115 mmol/L (98-107); Estimated CRCL calculation 15 ml/min; Estimated Glomerular Filt Rate 19; Glucose 105 mg/dL (65-110); Sodium 138 mmol/L (137-145)
[2022-10-10] MEDS: PIPERACILLIN/TAZ 2.25G/NS 50ML 2.25 GM/50 ML BAG IVPB (06:00)
[2022-10-10] MEDS: LEVOTHYROXINE SODIUM 125 MCG TABLET BY MOUTH (06:00)
[2022-10-10 06:09] LABS: Glucose Point of Care 108 mg/dl (65-105)
[2022-10-10 06:58] LABS: Folic Acid > 20.0 ng/mL (2.76->20)
[2022-10-10] MEDS: SODIUM BICARBONATE 8.4% 50 MEQ/50 ML SYRINGE IV PUSH (07:49)
[2022-10-10] MEDS: IRON SUCROSE COMPLEX 200 MG in SODIUM CHLORIDE 0.9% IV 50 ML 120 MG IVPB (08:25)
[2022-10-10] MEDS: CHOLECALCIFEROL 1,000 UNITS TABLET 1000 UNITS PO (08:29)
[2022-10-10] MEDS: ACIDOPHILUS/BULGARICUS CHEWABLE TABLET 1 TABLET PO ×4 (08:29→20:46)
[2022-10-10 08:30] VITALS: RESP 16; O2SAT 99
[2022-10-10] MEDS: ATORVASTATIN 10 MG TABLET PO (08:30)
[2022-10-10] MEDS: SODIUM BICARBONATE TAB 650 MG TABLET PO ×2 (08:30→16:37)
[2022-10-10] MEDS: PANTOPRAZOLE 40 MG TABLET PO (08:30)
[2022-10-10] MEDS: VALSARTAN 80 MG TABLET BY MOUTH (08:30)
[2022-10-10] MEDS: VITAMIN B COMPLEX CAPSULE 1 CAP PO (08:30)
[2022-10-10] MEDS: FERROUS SULFATE 324 MG TABLET PO ×2 (08:30→16:36)
--- NOTE | 2022-10-10 10:16 | PM.DS ---
DS: Admitting Diagnosis Discharge Date 10/10/22 Admitting Diagnosis acute appendicitis DS: Discharge Diagnosis Discharge Diagnosis (1) Acute appendicitis: Code(s): K35.80 - Unspecified acute appendicitis Status: Acute Assessment and Plan: treated conservatively with IV antibiotics, patient doing well, exam and labs normalized, home with p.o. antibiotics times 10 days, follow-up 2 weeks (2) Essential (primary) hypertension: Code(s): I10 - Essential (primary) hypertension Status: Acute Assessment and Plan: stable, continue home medications (3) DM type 2 causing CKD stage 4: Qualifiers: Diabetes mellitus long-term insulin use: without long-term use Qualified Code(s): E11.22 - Type 2 diabetes mellitus with diabetic chronic kidney disease; N18.4 - Chronic kidney disease, stage 4 (severe) Code(s): E11.22 - Type 2 diabetes mellitus with diabetic chronic kidney disease; N18.4 - Chronic kidney disease, stage 4 (severe) Status: Chronic Assessment and Plan: stable, continue home meds and diabetic diet (4) History of malignant neoplasm of anus: Code(s): Z85.048 - Personal history of other malignant neoplasm of rectum, rectosigmoid junction, and anus Status: Chronic Assessment and Plan: stable (5) 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 Given the complexity of her previous history, decision was made to proceed with conservative management with IV antibiotics. The patient was subsequently admitted to the surgical service and started on Zosyn. Over her hospital course, her abdominal exam normalized and is now completely benign. Her diet was slowly advanced and at the time of her discharge she was tolerating a diabetic diet without issue. The patient does have a history chronic diarrhea and reports this is normal for her. The patient will be discharged at this time with p.o. antibiotics for an additional 10 days. She will follow up with Dr. Rosales in 2 weeks. Status at Discharge Functional status at discharge: independent ambulation Overall status at discharge: patient is back to baseline Time Spent with Patient Time attestation: Total time spent providing and/or coordinating discharge services:30 minutes Time spent: Less than 30 minutes Exam Const: General: cooperative, comfortable and no acute distress Resp: Auscultation: clear to auscultation bilaterally Cardio: Rate: regular rate Rhythm: regular rhythm GI: Inspection: normal to inspection and non-distended GI Palp: No abdominal tenderness, Yes Soft to palpation, No Tenderness to palpation present (GI), No Guarding due to palpation present (GI) and No Rigid due to palpation DS: Data Data Completed and Pending Labs on day of discharge: Labs from last 24 hours 10/10/22 10/10/22 10/09/22 05:59 05:02 23:46 WBC 5.2 RBC 2.66 L Hgb 7.6 L Hct 24.4 L MCV 91.7 MCH 28.6 MCHC 31.1 L RDW 13.3 Plt Count 173 MPV 10.1 Sodium 138 Potassium 4.0 Chloride 115 H Carbon Dioxide 16 L Anion Gap 7 L BUN 22 H Creatinine 2.50 H Estim Creat Clear Calc 15 Estimated GFR 19 L Glucose 105 POC Capillary Glucose 108 H 120 H Calcium 8.5 Vitamin B12 381.0 Folate > 20.0 H Stl Occult Blood (IFOB) 10/09/22 10/09/22 12:23 11:10 WBC RBC Hgb Hct MCV MCH MCHC RDW Plt Count MPV Sodium Potassium Chloride Carbon Dioxide Anion Gap BUN Cr
--- NOTE | 2022-10-10 11:16 | PM.IMPN ---
Progress Note: A&P Assessment and Plan (1) Appendicitis with nonoperative management: Code(s): K37 - Unspecified appendicitis Status: Acute Assessment and Plan: Patient cleared by Surgery team, will discharge on Cipro 500 mg BID and Flagyl 375 mg BID for 10 days. Patient to see Dr. Rosales in clinic in 2 weeks. Will discontinue IV antibiotics (Zosyn likely contributing to declining renal function) and start oral antibiotics as prescribed by Surgery service. (2) Anemia: Qualifiers: Anemia type: iron deficiency Iron deficiency anemia type: unspecified iron deficiency Qualified Code(s): D50.9 - Iron deficiency anemia, unspecified Code(s): D64.9 - Anemia, unspecified Status: Acute Assessment and Plan: Iron deficiency anemia and anemia of chronic illness, no suspected source of bleeding, negative Hemoccult. H&H continues to decline, currently 7.6/24.4. Ordered IV iron infusion, continue oral iron replacement. Patient not wanting blood transfusion at this time if can be avoided. Will check labs in afternoon and morning. (3) DM type 2 causing CKD stage 4: Qualifiers: Diabetes mellitus intermediate insulin use: without intermodal customer service use Qualified Code(s): E11.22 - Type 2 diabetes mellitus with diabetic chronic kidney disease; N18.4 - Chronic kidney disease, stage 4 (severe) Code(s): E11.22 - Type 2 diabetes mellitus with diabetic chronic kidney disease; N18.4 - Chronic kidney disease, stage 4 (severe) Status: Chronic Assessment and Plan: Sugars well controlled on sliding scale and dietary discretion. Renal function noted to be declining with current BUN 22, Cr 2.5 and estimated creatinine clearance 15. Zosyn stopped and changed to oral antibiotics Cipro/Flagyl. Urine eosinophils and urine electrolytes sent. Nephrology consulted, appreciate recommendations/guidance. (4) Diarrhea: Qualifiers: Diarrhea type: unspecified type Qualified Code(s): R19.7 - Diarrhea, unspecified Code(s): R19.7 - Diarrhea, unspecified Status: Acute Assessment and Plan: Chronic diarrhea, improving with loperamide use ordered by Surgery team. Hemoccult negative. 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 No site concerns. (6) History of malignant neoplasm of anus: Code(s): Z85.048 - Personal history of other malignant neoplasm of rectum, rectosigmoid junction, and anus Status: Chronic Assessment and Plan: Prior complex abdominal surgeries is reason for medical management of acute appendicitis. Chronic diarrhea as result of prior bowel resection. Subjective Date/time seen: 10/10/22 11:16 Interval history: This is a 72-year-old female patient admitted to the hospital for medical management of acute appendicitis. She is a type 2 diabetic with chronic kidney disease and urostomy in place due to multiple abdominal surgeries from cancer. patient reports that she feels completely well today was evaluated by surgery and planned to discharge on oral antibiotics ciprofloxacin 500 mg b.i.d. and metronidazole 375 mg b.i.d.. Review of labs this morning show serum creatinine increased to 2.5 and hemoglobin decreased to 7.6. Patient denies any bleeding and has had Hemoccult-negative diarrhea for 2 days. Abdominal pain from appendicitis has completely resolved. She reports no tenderness regardless of how hard you press on her belly. Patient states normal amount of clear yellow urine in urostomy. Patient disappointed that lab results have changed so much and are delaying her discharge home. Review of Systems Review of Systems: All systems reviewed & are unremarkable except as noted in HPI and below Exam Narrative: GENERAL: This is a thin, chronically-il
[2022-10-10] MEDS: CIPROFLOXACIN 500 MG TAB PO ×2 (11:41→20:47)
[2022-10-10 11:45] LABS: Creatinine Urine 47.1 mg/dL; Total Protein Urine Random 49 mg/dL; Ur Ttl Prot Creatinine Ratio 1.04 mg/mg (0-0.20)
[2022-10-10 11:46] LABS: Potassium Urine Random 13.6 meq/L; Sodium Urine Random 88 meq/L
[2022-10-10 11:54] LABS: Eosinophil Urine Rare % (None Seen); Urine Eos QC 2nd Tech Confirmed
--- NOTE | 2022-10-10 12:04 | PM.CNNEP ---
Assessment and Plan Assessment and plan (1) JIGAR (acute kidney injury): Code(s): N17.9 - Acute kidney failure, unspecified Status: Acute Assessment and Plan: is this JIGAR or just random fluctuations in baseline kidney function? perhaps this is just secondary to her resolving infection (appendicitis) urine testing noted: rare urine eosinophils (but since from urostomy bag, question validity) urine electrolytes are nonprerena moderate proteinuria UA not done (but once again, accuracy of results maybe skewed by urostomy) holding ARB check renal ultrasound follow repeat labs (2) Chronic kidney disease, stage IV (severe): Code(s): N18.4 - Chronic kidney disease, stage 4 (severe) Status: Chronic Assessment and Plan: baseline creatinine around 1.8 - 2.2mg/dl since 2019 presumably due to HTN, DM, and possibly bladder cancer however, has not follow-up with Dr. Sotomayor in the last several years is there an element of CKD progression(?) (3) Appendicitis: Qualifiers: Acute appendicitis type: unspecified acute appendicitis type Appendicitis type: acute appendicitis Qualified Code(s): K35.80 - Unspecified acute appendicitis Code(s): K37 - Unspecified appendicitis Status: Inactive Assessment and Plan: responded to conservative therapy Surgery following (4) Essential (primary) hypertension: Code(s): I10 - Essential (primary) hypertension Status: Acute Assessment and Plan: reasonable control ARB dosage decreased follow trend of hemodynamics (5) Metabolic acidosis: Code(s): E87.20 - Acidosis, unspecified Status: Chronic Assessment and Plan: presumably secondary to CKD and IVFs started on sodium bicarbonate (6) Diabetes: Code(s): E11.9 - Type 2 diabetes mellitus without complications Status: Acute Assessment and Plan: diet controlled follow blood sugars I will continue to follow the patient with you while she remains hospitalized and make further recommendations as needed. Thank you for allowing me to participate in care this patient. History of Present Illness Reason for Consult Consult date: 10/10/22 Reason for consult: acute renal failure (on chronic kidney disease) Chief Complaint Chief complaint: ACUTE APPENDICITIS History of Present Illness Narrative: The patient is a 72-year-old female with a past medical history as outlined below who presented to [facility] Emergency room due to right-sided abdominal pain. Apparently, the patient has some chronic abdominal pain issues at baseline. She reports that approximately 2 days prior to presentation to the emergency room, she had a sharp pain in the left lower quadrant that lasted only a few seconds. This then moved to her mid abdomen which is where she has her chronic pain issues at baseline. However, on the day before presentation, the pain seemed to move to the right side of her abdomen and was quite significant/severe. This was further complicated by the fact that she had a fever of 101?. Given the change of location of her abdominal pain in association with the aforemention fever, she came to the ER for further assessment. Workup and evaluation emergency room demonstrated the patient be in mild distress secondary to her abdominal pain but she was otherwise afebrile and hemodynamically stable Although she was slightly tachycardic. Routine blood test [place] [id number] and her chemistry showed no critical electrolyte abnormalities but she did have an elevated BUN and creatinine consistent with her known history of chronic kidney disease. Given the severity of her abdominal pain and her complex medical/ surgical history, she had a CT scan of the abdomen pelvis which demonstrated acute appendicitis with a 13 mm appendix but no appendicoliths. General surgery was consulte
--- NOTE | 2022-10-10 12:04 | P.CONNP_ITS ---
Assessment and Plan Assessment and plan (1) JIGAR (acute kidney injury): Code(s): N17.9 - Acute kidney failure, unspecified Status: Acute Assessment and Plan: * is this JIGAR or just random fluctuations in baseline kidney function? * perhaps this is just secondary to her resolving infection (appendicitis) * urine testing noted: * rare urine eosinophils (but since from urostomy bag, question validity) * urine electrolytes are nonprerena * moderate proteinuria * UA not done (but once again, accuracy of results maybe skewed by urostomy) * holding ARB * check renal ultrasound * follow repeat labs (2) Chronic kidney disease, stage IV (severe): Code(s): N18.4 - Chronic kidney disease, stage 4 (severe) Status: Chronic Assessment and Plan: * baseline creatinine around 1.8 - 2.2mg/dl since 2019 * presumably due to HTN, DM, and possibly bladder cancer * however, has not follow-up with Dr. Sotomayor in the last several years * is there an element of CKD progression(?) (3) Appendicitis: Qualifiers: Acute appendicitis type: unspecified acute appendicitis type Appendicitis type: acute appendicitis Qualified Code(s): K35.80 - Unspecified acute appendicitis Code(s): K37 - Unspecified appendicitis Status: Inactive Assessment and Plan: * responded to conservative therapy * Surgery following (4) Essential (primary) hypertension: Code(s): I10 - Essential (primary) hypertension Status: Acute Assessment and Plan: * reasonable control * ARB dosage decreased * follow trend of hemodynamics (5) Metabolic acidosis: Code(s): E87.20 - Acidosis, unspecified Status: Chronic Assessment and Plan: * presumably secondary to CKD and IVFs * started on sodium bicarbonate (6) Diabetes: Code(s): E11.9 - Type 2 diabetes mellitus without complications Status: Acute Assessment and Plan: * diet controlled * follow blood sugars I will continue to follow the patient with you while she remains hospitalized and make further recommendations as needed. Thank you for allowing me to participate in care this patient. History of Present Illness Reason for Consult Consult date: 10/10/22 Reason for consult: acute renal failure (on chronic kidney disease) Chief Complaint Chief complaint: ACUTE APPENDICITIS History of Present Illness Narrative: The patient is a 72-year-old female with a past medical history as outlined below who presented to [facility] Emergency room due to right- sided abdominal pain. Apparently, the patient has some chronic abdominal pain issues at baseline. She reports that approximately 2 days prior to presentation to the emergency room, she had a sharp pain in the left lower quadrant that lasted only a few seconds. This then moved to her mid abdomen which is where she has her chronic pain iss ues at baseline. However, on the day before presentation, the pain seemed to move to the right side of her abdomen and was quite significant/severe. This was further complicated by the fact that she had a fever of 101?. Given the change of location of her abdominal pain in association with the aforemention fever, she came to the ER for further assessment. Workup and evaluation emergency room demonstrated the patient be in mild distress secondary to her abdominal pain but she was otherwise afebrile and hemodynamically stable Although she was slightly tachycardic. Routine blood test [place] [address] and
[2022-10-10 12:05] LABS: Glucose Point of Care 146 mg/dl (65-105)
[2022-10-10] MEDS: metroNIDAZOLE 250 MG TABLET 500 MG PO ×2 (12:28→16:36)
[2022-10-10 14:00] VITALS: BP 123/69; PULSE 84; RESP 18; TEMP 36.8; O2SAT 98
[2022-10-10 16:31] LABS: Hematocrit 23.5 % (37.0-47.0); Hemoglobin 7.5 g/dL (12.0-15.0)
[2022-10-10 17:06] LABS: Albumin Level 2.9 g/dL (3.5-5.1); Anion Gap 7 mmol/L (8-16); Blood Urea Nitrogen 22 mg/dL (7-17); Calcium 8.1 mg/dL (8.4-10.2); Carbon Dioxide 17 mmol/L (22-30); Chloride 113 mmol/L (98-107); Estimated CRCL calculation 18 ml/min; Estimated Glomerular Filt Rate 23; Glucose 127 mg/dL (65-110); Phosphorus 3.7 mg/dL (2.5-4.5); Potassium 3.9 mmol/L (3.4-5.0); Sodium 137 mmol/L (137-145)
[2022-10-10 18:05] LABS: Glucose Point of Care 124 mg/dl (65-105)
[2022-10-10 20:14] VITALS: BP 131/54; PULSE 64; RESP 16; TEMP 36.4; O2SAT 100
[2022-10-10 22:22] LABS: Glucose Point of Care 108 mg/dl (65-105)
[2022-10-11] MEDS: LOPERAMIDE HCL 2 MG CAPSULE 4 MG PO ×2 (04:41→11:43)
[2022-10-11 04:45] VITALS: BP 128/58; PULSE 67; RESP 18; TEMP 36.5; O2SAT 98
[2022-10-11 06:05] LABS: Hematocrit 24.9 % (37.0-47.0); Hemoglobin 7.8 g/dL (12.0-15.0); Mean Corpuscular HGB Conc 31.3 g/dl (32-36); Mean Corpuscular Hemoglobin 28.7 pg (26-34); Mean Corpuscular Volume 91.5 fl (80-100); Mean Platelet Volume 10.6 fl (7.4-10.4); Platelet Count Result 178 k/mm3 (150-375); Red Blood Count 2.72 M/mm3 (4.2-5.4); Red Cell Distribution Width 13.2 % (11.5-14.5); White Blood Count 4.9 K/mm3 (4.5-10.0)
[2022-10-11] MEDS: LEVOTHYROXINE SODIUM 125 MCG TABLET BY MOUTH (06:44)
[2022-10-11 08:00] VITALS: RESP 18; O2SAT 98
[2022-10-11 08:19] LABS: Glucose Point of Care 91 mg/dl (65-105)
[2022-10-11 08:56] LABS: Anion Gap 8 mmol/L (8-16); Blood Urea Nitrogen 23 mg/dL (7-17); Calcium 8.5 mg/dL (8.4-10.2); Carbon Dioxide 19 mmol/L (22-30); Chloride 111 mmol/L (98-107); Estimated CRCL calculation 20 ml/min; Estimated Glomerular Filt Rate 26; Glucose 85 mg/dL (65-110); Potassium 3.6 mmol/L (3.4-5.0); Sodium 138 mmol/L (137-145)
[2022-10-11] MEDS: ACIDOPHILUS/BULGARICUS CHEWABLE TABLET 1 TABLET PO ×2 (09:00→13:01)
[2022-10-11] MEDS: PANTOPRAZOLE 40 MG TABLET PO (09:00)
[2022-10-11] MEDS: metroNIDAZOLE 250 MG TABLET 500 MG PO ×2 (09:00→13:01)
[2022-10-11] MEDS: FERROUS SULFATE 324 MG TABLET PO (09:01)
[2022-10-11] MEDS: SODIUM BICARBONATE TAB 650 MG TABLET PO (09:01)
[2022-10-11] MEDS: VALSARTAN 40 MG TABLET BY MOUTH (09:01)
[2022-10-11] MEDS: CHOLECALCIFEROL 1,000 UNITS TABLET 1000 UNITS PO (09:01)
[2022-10-11] MEDS: ATORVASTATIN 10 MG TABLET PO (09:01)
[2022-10-11] MEDS: VITAMIN B COMPLEX CAPSULE 1 CAP PO (09:01)
[2022-10-11] MEDS: CIPROFLOXACIN 500 MG TAB PO (09:02)
[2022-10-11] MEDS: IRON SUCROSE COMPLEX 500 MG in SODIUM CHLORIDE 0.9% IV 250 ML 78.57 MG IVPB (09:48)
--- NOTE | 2022-10-11 09:58 | P.PNNP_ITS ---
Progress Note: A&P Assessment and Plan (1) JIGAR (acute kidney injury): Code(s): N17.9 - Acute kidney failure, unspecified Status: Acute Assessment and Plan: * improvement noted by trend of labs (if not back to baseline) * suspect multifactorial: * secondary to her resolving infection (appendicitis) * prerenal factors * continued use of ARB (in this setting) * urine testing noted: * rare urine eosinophils (but since from urostomy bag, question validity) * urine electrolytes are non-prerenal * moderate proteinuria * UA not done (but once again, accuracy of results maybe skewed by urostomy) * hold off on checking renal ultrasound for now * CT of abd/pelvis with mild bilateral hydronephrosis and hydroureter with interval improvement * suspect this is a chronic issue * consider outpatient follow-up with Urology * on reduced dose of ARB * follow repeat labs (2) Chronic kidney disease, stage IV (severe): Code(s): N18.4 - Chronic kidney disease, stage 4 (severe) Status: Chronic Assessment and Plan: * baseline creatinine around 1.8 - 2.2mg/dl since 2019 * presumably due to HTN, DM, and possibly bladder cancer * however, has not follow-up with Dr. Sotomayor in the last several years (3) Appendicitis: Qualifiers: Acute appendicitis type: unspecified acute appendicitis type Appendicitis type: acute appendicitis Qualified Code(s): K35.80 - Unspecified acute appendicitis Code(s): K37 - Unspecified appendicitis Status: Inactive Assessment and Plan: * responded to conservative therapy * Surgery following (4) Anemia: Qualifiers: Anemia type: iron deficiency Iron deficiency anemia type: unspecified iron deficiency Qualified Code(s): D50.9 - Iron deficiency anemia, unspecified Code(s): D64.9 - Anemia, unspecified Status: Acute Assessment and Plan: * suspect due to CKD and dilutional from IVFs * evidence of iron deficiency by anemia studies * getting IV iron and oral supplementation * empirically dose with Epogen x 1 * may need further PETTY as an outpatient (she already follows with [facility] Oncology) (5) Essential (primary) hypertension: Code(s): I10 - Essential (primary) hypertension Status: Acute Assessment and Plan: * reasonable control * ARB dosage decreased - BP remains stable * follow trend of hemodynamics (6) Metabolic acidosis: Code(s): E87.20 - Acidosis, unspecified Status: Chronic Assessment and Plan: * improvement noted * presumably secondary to CKD and IVFs * started on sodium bicarbonate (7) Diabetes: Code(s): E11.9 - Type 2 diabetes mellitus without complications Status: Acute Assessment and Plan: * diet controlled * follow blood sugars Not opposed to discharge from renal perspective if otherwise medically stable. I recommend to re-establish care with Dr. Sotomayor for ongoing managment/monitoring of her known chronic kidney disease. Will continue to follow. Subjective Date/time seen: 10/11/22 09:58 Interval history: Follow-up for acute kidney injury/acute renal failure on chronic kidney disease. Renal function appears to have improved current interventions; no apparent distress noted at the time of my visit; no issues/events overnight or earlier this morning; states she feels reasonably well. Exam Narrative: General: thin/elderly female in NAD Heart: normal S1 and S2; no r
--- NOTE | 2022-10-11 09:58 | PM.PNNEP ---
Progress Note: A&P Assessment and Plan (1) JIGAR (acute kidney injury): Code(s): N17.9 - Acute kidney failure, unspecified Status: Acute Assessment and Plan: improvement noted by trend of labs (if not back to baseline) suspect multifactorial: secondary to her resolving infection (appendicitis) prerenal factors continued use of ARB (in this setting) urine testing noted: rare urine eosinophils (but since from urostomy bag, question validity) urine electrolytes are non-prerenal moderate proteinuria UA not done (but once again, accuracy of results maybe skewed by urostomy) hold off on checking renal ultrasound for now CT of abd/pelvis with mild bilateral hydronephrosis and hydroureter with interval improvement suspect this is a chronic issue consider outpatient follow-up with Urology on reduced dose of ARB follow repeat labs (2) Chronic kidney disease, stage IV (severe): Code(s): N18.4 - Chronic kidney disease, stage 4 (severe) Status: Chronic Assessment and Plan: baseline creatinine around 1.8 - 2.2mg/dl since 2019 presumably due to HTN, DM, and possibly bladder cancer however, has not follow-up with Dr. Sotomayor in the last several years (3) Appendicitis: Qualifiers: Acute appendicitis type: unspecified acute appendicitis type Appendicitis type: acute appendicitis Qualified Code(s): K35.80 - Unspecified acute appendicitis Code(s): K37 - Unspecified appendicitis Status: Inactive Assessment and Plan: responded to conservative therapy Surgery following (4) Anemia: Qualifiers: Anemia type: iron deficiency Iron deficiency anemia type: unspecified iron deficiency Qualified Code(s): D50.9 - Iron deficiency anemia, unspecified Code(s): D64.9 - Anemia, unspecified Status: Acute Assessment and Plan: suspect due to CKD and dilutional from IVFs evidence of iron deficiency by anemia studies getting IV iron and oral supplementation empirically dose with Epogen x 1 may need further PETTY as an outpatient (she already follows with [facility] Oncology) (5) Essential (primary) hypertension: Code(s): I10 - Essential (primary) hypertension Status: Acute Assessment and Plan: reasonable control ARB dosage decreased - BP remains stable follow trend of hemodynamics (6) Metabolic acidosis: Code(s): E87.20 - Acidosis, unspecified Status: Chronic Assessment and Plan: improvement noted presumably secondary to CKD and IVFs started on sodium bicarbonate (7) Diabetes: Code(s): E11.9 - Type 2 diabetes mellitus without complications Status: Acute Assessment and Plan: diet controlled follow blood sugars Not opposed to discharge from renal perspective if otherwise medically stable. I recommend to re-establish care with Dr. Sotomayor for ongoing managment/monitoring of her known chronic kidney disease. Will continue to follow. Subjective Date/time seen: 10/11/22 09:58 Interval history: Follow-up for acute kidney injury/acute renal failure on chronic kidney disease. Renal function appears to have improved current interventions; no apparent distress noted at the time of my visit; no issues/events overnight or earlier this morning; states she feels reasonably well. Exam Narrative: General: thin/elderly female in NAD Heart: normal S1 and S2; no rub Lungs: clear to auscultation Abdomen: soft, nontender, nondistended, positive bowel sounds Extremities: no cyanosis or clubbing; no edema Skin: warm and dry Objective Data Vital Signs Vital Signs: Vital Signs Temp Pulse Resp BP Pulse Ox O2 Del Method 10/11/22 08:00 18 98 Room Air 10/11/22 04:45 97.7 F 67 18 128/58 L 98 10/10/22 20:00 Room Air 10/10/22 20:14 97.6 F 64 16 131/54 L 100 10/10/22 14:00 98.2 F 84 18 123/69 98 Intake
--- NOTE | 2022-10-11 09:59 | PM.PNGS ---
Progress Note: A&P Assessment and Plan (1) Acute appendicitis: Code(s): K35.80 - Unspecified acute appendicitis Status: Acute Assessment and Plan: doing well, home c po abx, f/u 2 wks Subjective Subjective Date/Time Seen: 10/11/22 09:59 Interval history: dc held yesterday secondary to some sl anemia and renal dysfunction, pt feels good and planning for dc today Review of Systems Review of Systems: All systems reviewed & are unremarkable except as noted in HPI and below Exam Const: General: cooperative, comfortable and no acute distress Resp: Auscultation: clear to auscultation bilaterally Cardio: Rate: regular rate Rhythm: regular rhythm GI: Inspection: normal to inspection and non-distended GI Palp: No abdominal tenderness, Yes Soft to palpation and No Tenderness to palpation present (GI) Objective Data Vital Signs Vital Signs: Vital Signs - 24 hr 10/10/22 14:00 10/10/22 20:14 10/10/22 20:00 Temperature 36.8 C 36.4 C Pulse Rate 84 64 Respiratory Rate 18 16 Blood Pressure 123/69 131/54 L Pulse Oximetry 98 100 Oxygen Delivery Room Air 10/11/22 04:45 10/11/22 08:00 Temperature 36.5 C Pulse Rate 67 Respiratory Rate 18 18 Blood Pressure 128/58 L Pulse Oximetry 98 98 Oxygen Delivery Room Air Intake/Output Intake/Output: Intake & Output 10/08/22 10/09/22 10/10/22 10/11/22 23:59 23:59 23:59 23:59 Intake Total 4650 4240 3690 930 Output Total 1840 2700 2350 1600 Balance 2810 1540 1340 -670 Meds/Results Medications: Active Medications Generic Name Dose Route Start Last Admin Trade Name Freq PRN Reason Stop Dose Admin Acetaminophen 500 mg 10/09/22 11:12 Acetaminophen 500 Mg Tablet PO Q6H PRN Mild Pain (1-3) or Fever Hydrocodone Bitart/Acetaminophen 1 tab 10/09/22 11:12 Hydrocodone/Acetaminophen (*Crx) 5-325 Mg Tablet PO Q4H PRN Pain Rated 7-10 Atorvastatin Calcium 10 mg 10/09/22 09:00 10/11/22 09:01 Atorvastatin 10 Mg Tablet PO 10 mg DAILY DESTINY Administration Ciprofloxacin 500 mg 10/10/22 11:15 10/11/22 09:02 Ciprofloxacin 500 Mg Tab PO 500 mg Q12HR DESTINY Administration Dextrose 12.5 gm 10/07/22 20:40 Dextrose 50% 25 Gm/50 Ml Syringe IV PUSH PRN PRN Hypoglycemia Protocol Fentanyl Citrate 25 mcg 10/07/22 20:38 Fentanyl Citrate Inj (*Crx) 100 Mcg/2 Ml Vial IV PUSH Q4H PRN Pain Rated 7-10 Fentanyl Citrate 12.5 mcg 10/09/22 11:16 Fentanyl Citrate Inj (*Crx) 100 Mcg/2 Ml Vial IV PUSH Q4H PRN Pain Rated 4-6 Ferrous Sulfate 324 mg 10/08/22 17:00 10/11/22 09:01 Ferrous Sulfate 324 Mg Tablet PO 324 mg BID DESTINY Administration Glucagon 1 mg 10/07/22 20:40 Glucagon For Inj 1 Mg Vial IM PRN PRN Hypoglycemia Protocol Glucose 15 gm 10/07/22 20:40 Glucose Oral Gel 15 Gm Of Glucse In 37.5 Gm Tube PO PRN PRN Hypoglycemia Protocol Dextrose 1,000 mls @ 100 mls/hr 10/07/22 20:40 Dextrose 5% 1,000 Ml IVPB PRN PRN Hypoglycemia Protocol Iron Sucrose 500 mg/ Sodium 275 mls @ 78.571 mls/hr 10/11/22 10:00 10/11/22 09:48 Chloride IVPB 10/11/22 13:29 78.57 mls/hr ONCE ONE Administration Lactobacillus Acidophilus 1 tablet 10/09/22 13:00 10/11/22 09:00 Acidophilus/Bulgaricus Chewable Tablet PO 1 tablet QID DESTINY Administration Levothyroxine Sodium 125 mcg 10/08/22 09:00 10/11/22 06:44 Levothyroxine Sodium 125 Mcg Tablet BY MOUTH 125 mcg DAILY@0630 DESTINY Administration Loperamide HCl 4 mg 10/09/22 12:45 10/11/22 04:41 Loperamide Hcl 2 Mg Capsule PO 4 mg Q6H PRN Administration Diarrhea Metronidazole 500 mg 10/10/22 13:00 10/11/22 09:00 Metronidazole 250 Mg Tablet PO 500 mg TID DESTINY Administration Pantoprazole Sodium 40 mg 10/08/22 09:00 10/11/22 09:00 Pantoprazole 40 Mg Tablet PO 40 mg QAM DESTINY Administration Sodium Bicarbonate
--- NOTE | 2022-10-11 10:04 | PM.DS ---
DS: Admitting Diagnosis Discharge Date 10/11/2022 Admitting Diagnosis acute appendicitis essential HTN DM type 2 causing CKD stage 4 dyslipidemia history of urostomy history of total cystectomy history of malignant neoplasm of anus other specified hypothyroidism chronic GERD CKD DS: Discharge Diagnosis Discharge Diagnosis (1) Appendicitis with nonoperative management: Code(s): K37 - Unspecified appendicitis Status: Acute (2) DM type 2 causing CKD stage 4: Qualifiers: Diabetes mellitus detention insulin use: without detention use Qualified Code(s): E11.22 - Type 2 diabetes mellitus with diabetic chronic kidney disease; N18.4 - Chronic kidney disease, stage 4 (severe) Code(s): E11.22 - Type 2 diabetes mellitus with diabetic chronic kidney disease; N18.4 - Chronic kidney disease, stage 4 (severe) Status: Chronic (3) Anemia: Qualifiers: Anemia type: iron deficiency Iron deficiency anemia type: unspecified iron deficiency Qualified Code(s): D50.9 - Iron deficiency anemia, unspecified Code(s): D64.9 - Anemia, unspecified Status: Acute (4) Essential (primary) hypertension: Code(s): I10 - Essential (primary) hypertension Status: Acute (5) Diarrhea: Qualifiers: Diarrhea type: unspecified type Qualified Code(s): R19.7 - Diarrhea, unspecified Code(s): R19.7 - Diarrhea, unspecified Status: Acute (6) Hypothyroidism, unspecified: Qualifiers: Hypothyroidism type: unspecified Qualified Code(s): E03.9 - Hypothyroidism, unspecified Code(s): E03.9 - Hypothyroidism, unspecified Status: Acute (7) History of malignant neoplasm of anus: Code(s): Z85.048 - Personal history of other malignant neoplasm of rectum, rectosigmoid junction, and anus Status: Chronic (8) History of total cystectomy: Code(s): Z90.6 - Acquired absence of other parts of urinary tract Status: Chronic (9) History of urostomy: Code(s): Z98.890 - Other specified postprocedural states Status: Chronic (10) Mixed hyperlipidemia: Code(s): E78.2 - Mixed hyperlipidemia Status: Acute (11) Chronic GERD: Code(s): K21.9 - Gastro-esophageal reflux disease without esophagitis Status: Acute (12) JIGAR (acute kidney injury): Code(s): N17.9 - Acute kidney failure, unspecified Status: Acute (13) Metabolic acidosis: Code(s): E87.20 - Acidosis, unspecified Status: Chronic DS: Summary Hospital Course Reason for hospitalization: This patient was admitted to the surgery service for acute appendicitis. Hospitalist Service consulted due to multiple medical comorbidities. Hospital Course: After discussion with surgery, patient opted for non operative management of acute appendicitis on IV antibiotics. Patient has complex abdominal surgery history including total cystectomy with urostomy tube in place due to a history of bladder an anal cancer. For this reason operative management was felt to be complex and risky especially in light of patient's significant CKD. She was treated with IV Zosyn and IV fluids initially. During hospital stay patient had decrease in hemoglobin and hematocrit without obvious source of bleeding. Labs indicate iron deficiency anemia. She also developed diarrhea requiring the use of antidiarrheals and continued administration of IV fluids. Yesterday patient was cleared by surgery to be discharged with prescription for ciprofloxacin and metronidazole for 10 days however her hemoglobin was noted to be 7.6 and her creatinine had increased from a baseline of around 2 up to 2.5. For this reason patient was held and the consultation with nephrology pursued. IV Zosyn use is likely what caused this rise in serum creatinine. Additionally, sodium bicarb was added due to continued metabolic acidosis in the setting of urostomy tube. Patient is on valsartan for
[2022-10-11 11:42] LABS: Glucose Point of Care 87 mg/dl (65-105)
== END 2022-10-11 14:15 | disposition home or self-care (01) ==
PROVIDERS: Internal Medicine; Admitting Provider Surgery; PCP Family Medicine; Visit Provider Nurse Practitioner
DX: K35.80 Unspecified acute appendicitis (principal); I12.9 Hypertensive chronic kidney disease with stage 1 through stage 4 chronic kidney disease, or unspecified chronic kidney disease; E11.22 Type 2 diabetes mellitus with diabetic chronic kidney disease; N18.4 Chronic kidney disease, stage 4 (severe); N17.9 Acute kidney failure, unspecified; E78.5 Hyperlipidemia, unspecified; C67.9 Malignant neoplasm of bladder, unspecified; Z98.890 Other specified postprocedural states; Z90.6 Acquired absence of other parts of urinary tract; E87.20 Acidosis, unspecified; E03.9 Hypothyroidism, unspecified; R19.7 Diarrhea, unspecified; D50.9 Iron deficiency anemia, unspecified; D72.829 Elevated white blood cell count, unspecified; E11.36 Type 2 diabetes mellitus with diabetic cataract; H26.9 Unspecified cataract; K21.9 Gastro-esophageal reflux disease without esophagitis; Z90.49 Acquired absence of other specified parts of digestive tract; Z92.21 Personal history of antineoplastic chemotherapy; Z85.048 Personal history of other malignant neoplasm of rectum, rectosigmoid junction, and anus; Z92.3 Personal history of irradiation
CPT/HCPCS: 36415; 74176; 80048; 80053; 80069; 82274; 82436; 82570; 82607; 82728; 82746; 82948; 83540; 83550; 83935; 84133; 84156; 84300; 84439; 85014; 85018; 85025; 85027; 85999; 96361; 96365; 96367; 96372; 96375; 99284; A9270; G0378; G0379; J1650; J1756; J2270; J2543; J7030; J7050; Q5105

== ENCOUNTER 2023-07-06 13:08 | Outpatient (RCR) | payer MEDICARE, SELFPAY ==
[2023-07-06 13:10] VITALS: BMI 23.6
[2023-07-06 13:21] VITALS: BMI 23.6
== END 2023-09-21 14:15 | disposition home or self-care (01) ==
LOC: ANHDMC 13:08
PROVIDERS: PCP Family Medicine; Visit Provider Internal Medicine Nephrology
DX: N18.32 Chronic kidney disease, stage 3b (principal); E87.1 Hypo-osmolality and hyponatremia; Z71.3 Dietary counseling and surveillance
CPT/HCPCS: 97802

== ENCOUNTER 2024-07-07 07:55 | Emergency (ER) | payer MEDICARE, SELFPAY ==
--- NOTE | ~2024-07-07 | CT_ITS ---
EXAMINATION: CT chest abdomen pelvis wo con DATE: 07/07/2024 09:13 INDICATION: Cough. Right lower quadrant abdominal pain. TECHNIQUE: Computed tomography (CT) of the chest, abdomen, and pelvis was performed without intraveno us contrast. Automated exposure control and iterative reconstruction technique were employed. The dos e-length product was 353.88 mGy-cm. COMPARISON: CT abdomen pelvis dated 10/08/2022 FINDINGS: CHEST CT: There are small calcified pulmonary nodules consistent with old granulomatous disease in the lingula, right middle and right lower lobes. There are a few additional scattered <3 mm pulmonary nodules whi ch are not definitively calcified. No pneumonia, pulmonary edema or pleural effusion. Heart size is n ormal. Small pericardial effusion. Thoracic aorta is normal in caliber. No pathologically enlarged th oracic lymphadenopathy. Mild to moderate thoracic spondylosis with Schmorl's nodes along the superior endplates of T11 and T12. ABDOMEN/PELVIS CT: Cholecystectomy clips the gallbladder fossa. Liver, spleen, pancreas and bilateral adrenal glands are normal. Status post cystectomy and right lower quadrant ileal conduit formation with small bowel milo stomotic suture line at the caudal terminus site. There is mild bilateral hydroureteronephrosis exten ding to the ileal conduit. No bowel obstruction. Prominent sigmoid diverticulosis without adjacent fr om trace stranding to suggest diverticular colitis. There is however prominent stranding in the right lower quadrant surrounding the appendix consistent with acute appendicitis. The retrocecal appendix is located 6 cm deep and 2 cm lateral to the abdominal wall defect for the ileal conduit which is its elf located 3 cm caudal to the location of the conduit the skin surface. No abscess or free intraperi toneal gas. No pathologically enlarged abdominal or pelvic lymphadenopathy. Mild lumbar spondylosis. IMPRESSION: 1. Acute appendicitis. Dr. Key discussed these findings with Dr. Rosas at 9:52 AM. 2. Small pericardial effusion. 3. Status post cystectomy and right lower quadrant ileal conduit formation with mild bilateral hydrou reteronephrosis. 4. There are few scattered indeterminate <3 mm pulmonary nodules which are likely sequela of old gran ulomatous disease. If the patient is low risk for lung cancer, no follow-up is needed. If the patient is high risk (i.e., history of smoking or asbestos or significant radiation exposure), optional foll ow-up chest CT could be considered at 12 months. Reviewed, dictated and finalized at location A. IMPRESSION: 1. Acute appendicitis. Dr. Key discussed these findings with Dr. Rosas at 9:52 AM. 2. Small pericardial effusion. 3. Status post cystectomy and right lower quadrant ileal conduit formation with mild bilateral hydroureteronephrosis. 4. There are few scattered indeterminate <3 mm pulmonary nodules which are like ly sequela of old granulomatous disease. If the patient is low risk for lung ca ncer, no follow-up is needed. If the patient is high risk (i.e., history of smo ross or asbestos or significant radiation exposure), optional follow-up chest C T could be considered at 12 months.
--- OUTSIDE RECORDS SUMMARY | 2024-07-07 07:59 | XMS_ITS | Clinical Summary ---
Author Organization [facility] Address [address] [place] [id number] Care Team Providers [facility] Name Role Phone Bar Sotomayor MD Unavailable [phone] Shabbir Villalpando MD Unavailable [phone] Bertin Irby MD Unavailable [phone] Prashant Nunez MD Unavailable [phone] Mike Rendon MD Unavailable [phone] Sharon Nye MD Primary Care Provider + Shirley Martínez MD Unavailable [phone] Allergies Active Allergy Reactions Criticality Noted Date Comments Lisinopril Cough Low 11/25/2017 Medications levothyroxine (SYNTHROID, LEVOTHROID) 125 mcg tabletIndication s:Hypothyroidism due to acquired atrophy of thyroid 3 8 Active atorvastatin (LIPITOR) 10 mg tabletIndication s:Essential hypertension 1 tablet daily at 2pm 1 8 Active aspirin 81 mg tabletIndication s:Essential hypertension Take 1 tablet (81 mg total) by mouth nightly Active losartan (COZAAR) 50 mg tablet Take 1 tablet (50 mg total) by mouth nightly 10 8 Active MULTIVITAMIN ORAL Take 1 tablet by mouth daily with breakfast. Active UNABLE TO FIND Take 1 each by mouth daily after lunch Med Name:Beet Powder Active loperamide HCl (ANTI-DIARRHEA ORAL) Take by mouth as needed Active caffeine 200 mg tablet Take 1 tablet (200 mg total) by mouth daily as needed 7 Active ferrous sulfate 325 mg (65 mg of elemental iron) tablet Take by mouth 2 (two) times a day 7 Active valsartan (DIOVAN) 80 mg tablet TK 1 T PO QD 11 9 Active cetirizine (ZyrTEC) 10 mg tablet Take 1 tablet (10 mg total) by mouth daily Active sodium bicarbonate 650 mg tablet Take 1 tablet (650 mg total) by mouth 2 (two) times a day 3 Active levothyroxine (SYNTHROID) 50 mcg tablet 3 Active polyethylene glycol (GoLYTELY) 236-22.74-6.74 -5.86 gram solution Follow Mychart instructions from Dr. Brown's office, do not follow instructions on package. For any questions call [phone]. 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 [address] [place] [phone] Cris Martin RN 06/01/2024 9:20 AM [facility] Office Visit [facility] [address] [place] [address] Prashant Nunez MD Urethral cancer (HCC) (Primary Dx); Malignant neoplasm of urinary bladder, unspecified site (HCC) 06/01/2024 8:45 AM [facility] Lab [address] [address] Malignant neoplasm of urinary bladder, unspecified site (HCC) 05/16/2024 6:58 AM [facility] - 05/16/2024 11:59 PM [facility] Hospital Encounter [facility] [address] [place] [phone] Discharge Disposition: Discharge to home or self care 05/16/2024 6:58 AM [facility] - 05/16/2024 11:59 PM [facility] Hospital Encounter [facility] [address] [place] [phone] Prashant Nunez MD Malignant neoplasm of urinary bladder, unspecified site (HCC) Discharge Disposition: Discharge to home or self care 05/16/2024 6:55 AM [facility] - 05/16/2024 11:59 PM [facility] Hospital Encounter [facility] [address] [place] [phone] Malignant neoplasm of urinary bladder, unspecified site (HCC) Discharge Disposition: Discharge to home or self care from Last 3 Months Immunizations Immunization Administration Dates Next Due Influenza, Quadrivalent, Ayana l Culture-based MDCK, Preservative Free, Antibiotic Free, Intramuscular 06/08/2019 Influenza, Quadrivalent, Rec ombinant, Egg Free, Preservative Free, Intramuscular 01/28/2018 Surgical History Surgery Date Site/Laterality Comments LAPAROSCOPIC CHOLECYSTECTOMY DILATION AND CURETTAGE OF UTERUS COLONOSCOPY ANKLE SURGERY BLADDER SURGERY TONSILLECTOMY PORT PLACEMENT CHEST >5 YEARS 04/06/2018 N/A PORT REMOVAL 12/07/2018 N/A SUPERFICIAL BONE BIOPSY 09/29/2022 N/A Medical History Medical History Date Comments Diabetes mellitus (HCC) Colon cancer (HCC) Anemia GERD (gastroesophageal reflux disease) Pancreatitis CKD (chronic kidney disease) HTN (hypertension) Hyperlipidemia Bladder cancer (HCC) History of kidney problems Thyroid disease Family History Medical History Relation Name Comments No Known Problems Father No Known Problems Mother Cervical cancer Sister 1 Kidney disease Sister 2 Relation Name Status Comments Father Mother Sister 1 Alive Sister 2 Alive Social History Tobacco Use Types Packs/Day Years Used Date Smoking Tobacco: Never Smokeless Tobacco: Never Tobacco Cessation:Counseling Given: Not Answered Alcohol Use Standard Drinks/Week Comments No 0 (1 standard drink = 0.6 oz pur e alcohol) AUDIT-C Answer Date Recorded Q1: How often do you have a drink containing alc ohol? 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 Sat in alot of traffic. Pulse 89 06/01/2024 9:00 AM [facility] Temperature 36.7 C (98 F) 06/01/2024 9:00 AM [facility] Respiratory Rate 22 06/01/2024 9:00 AM [facility] Oxygen Saturation 100% 06/01/2024 9:0 0 AM [facility] Inhaled Oxygen Concentration - - Weight 61.9 kg (136 lb 6.4 oz) 06/01/2024 9:00 AM [facility] Height 159.5 cm (5' 2.8 ) 06/01/2024 9: 00 AM [facility] Body Mass Index 24.32 06/01/2024 9:00 AM [facility] Plan of Treatment Health Maintenance Due Date Last Done Comments Breast Cancer Screening-Mammogram 1950 Depression Screening 1950 Hepatitis C Screening 1950 Osteoporosis Screening-Bone Density Scan 1950 DTaP/Tdap/Td Vaccine (1 - Tdap) 1960 Hepatitis B Screening 10/02/1967 Pneumococcal vaccine 65+ (1 of 2 - PCV) 1968 Zoster Vaccine (1 of 2) 1968 Well Visit 65+ 10/24/2020 10/25/2019 Fall Risk Assessment 09/30/2023 09/29/2022, 09/19/19 23 Influenza Vaccine (#1) 2023 06/08/2019, 2017 Colon Cancer Screening-Colonoscopy 05/30/20302020 Colon Cancer Screening-CT Colonography Discontinued Colon Cancer Screening-DNA Stool Discontinued 05/30/19 Colon Cancer Screening-FIT Discontinued 05/30/2020 Colon Cancer Screening-Sigmoidoscopy Discontinued 05/07 Medical Devices Implanted Type Area Linter Operator Device Identifier Shelf Expiration Date Model / Serial / Lot [employer] [id number] Xcela 8fr 1.6mm 1 Lumen Power Injectable Attach Catheter Fill - [id number] - [id number] Implanted:Qty: 1 on 04/06/2018 at [facility] Catheter Right: Chest [employer] 11/15/2022 [id number] / [id number] / Procedures Procedure Name Priority Date/Time Associated Diagnosis Comments EGFR Routine 06/01/2024 9:49 AM [facility] Malignant neoplasm of urinary bladder, unspecified site (HCC) DIFFERENTIAL AUTO Routine 06/01/2024 9:4 9 AM [facility] Malignant neoplasm of urinary bladder, unspecified site (HCC) CBC WITH AUTO DIFFERENTIAL Routine 06/01/2024 9:49 AM [facility] Malignant neoplasm of urinary bladder, unspecified site (HCC) COMPREHENSIVE METABOLIC PANEL Routine 06/01/2024 9:49 AM [facility]ER Malignant neoplasm of urinary bladder, unspecified site (HCC) NM BONE IMAGING WHOLE BODY Schedule Routine, Read Routine (OP Routine) 05/16/2024 11:19 AM [facility] Malignant neoplasm of urinary bladder, unspecified site (HCC) CT CHEST ABDOMEN PELVIS WO CONTRAST Schedule Routine, Read Routine (OP Routine) 05/16/2024 8:42 AM [facility] Malignant neoplasm of urinary bladder, unspecified site (HCC) COLONOSCOPY 05/30/2020 8:25 AM [facility] from Last 3 Months or Most Recently Relevant to Health Maintenance Results * (ABNORMAL) eGFR (06/01/2024 9:49 AM [facility]) eGFR 25(L) >=60 mL/min/1. 73 m2 Comment: Interpretive Data Reference Interval Normal >/= 90 mL/min/1.73m2 Mildly decreased* 60 - 89 mL/min/1.73m2 Mildly to moderately decreased 45 - 59 mL/min/1.73m2 Moderately to severely decreased 30 - 44 mL/min/1.73m2 Severely decreased 15 - 29 mL/min/1.73m2 Kidney Failure < 15 mL/min/1.73m2 *Relative to young adult level Estimated glomerular filtration rate is determined by the 2020 CKD-EPI equation recommended by the National Kidney Foundation (A Unifying Approach to GFR Estimation: Recommendations of the NKF-ASK Task Force on Reassessing the Inclusion of Race in Diagnosing Kidney Disease, JASN 2020). The CKD-EPI equation should not be used for patients with unstable renal function and has not been validated in children and those over 70. Current interpretive data was last reviewed 2021. Blood 06/01/2024 9:49 AM [facility] 06/01/2024 9:51 AM [facility] Prashant Nunez MD LAB BLOOD ORDERABLES Final Result [facility] [place] [address] * Differential, auto (06/01/2024 9:49 AM [facility]ER) Pathologist [facility] Neutrophil abs 4.9 1.5 - 6.5 K/cumm Comment:Testing performed by : [facility], [address] [place] [address] Imm gran abs 0.1 0.0 - 0.1 K/cumm [facility] Lymphocyte abs 1.8 0.8 - 3.3 K/cumm [facility] Monocyte abs 0.8 0.2 - 0.8 K/cumm [facility] Eosinophil abs 0.2 0.0 - 0.5 K/cumm [facility] Basophil abs 0.1 0.0 - 0.1 K/cumm [facility] Neutrophil pct 62.6 % [facility] Comment: Interpretive Data Percent cell count reference ranges are not reported, since discordance with absolute values may lead to misinterpretation of CBC data. Current Interpretive Data was last revised on 2017. Imm gran pct 1.8 % [facility] Comment: Interpretive Data Percent cell count reference ranges are not reported, since discordance with absolute values may lead to misinterpretation of CBC data. Current Interpretive Data was last revised on 2017. Lymphocyte pct 22.4 % [facility] Comment: Interpretive Data Percent cell count reference ranges are not reported, since discordance with absolute values may lead to misinterpretation of CBC data. Current Interpretive Data was last revised on 2017. Monocyte pct 10.0 % [facility] Comment: Interpretive Data Percent cell count reference ranges are not reported, since discordance with absolute values may lead to misinterpretation of CBC data. Current Interpretive Data was last revised on 2017. Eosinophil pct 2.4 % [facility] Comment: Interpretive Data Percent cell count reference ranges are not reported, since discordance with absolute values may lead to misinterpretation of CBC data. Current Interpretive Data was last revised on 2017. Basophil pct 0.8 % [facility] Comment: Interpretive Data Percent cell count reference ranges are not reported, since discordance with absolute values may lead to misinterpretation of CBC data. Current Interpretive Data was last revised on 2017. Blood 06/01/2024 9:49 AM [facility]ER 06/01/2024 9:51 AM [facility]ER us Prashant Nunez MD LAB BLOOD ORDERABLES Final Result Performing Organization Address City/State/[facility] Co de Phone Number [facility] [place] [address] * (ABNORMAL) CBC with auto differential (06/01/2024 9:49 AM [facility]) WBC 7.8 3.8 - 9.9 K/cumm Comment:Testing performed by : [address] [address] Hgb 9.4(L) 11.9 - 15.5 g/dL [facility] Comment:Testing performed by : [address] [address] Hct 28.1(L) 35.6 - 45.5 % [facility] Comment:Testing performed by : [facility], [address] [place] [address] Plt 314 150 - 400 K/cumm [facility] Comment:Testing performed by : [facility], [address] [place] [address] MPV 9.5 9.1 - 12.3 fL [facility] RBC 3.18(L) 3.90 - 5.20 M/cumm [facility] MCV 88.4 81.3 - 96.4 fL [facility] MCH 29.6 27.1 - 33.3 pg [facility] MCHC 33.5 32.3 - 35.7 g/dL [facility] RDW CV 13.1 11.1 - 14.9 % [facility] RDW SD 41.9 35.7 - 48.1 fL [facility] NRBC abs 0.00 0.00 - 0.01 K/cumm [facility] Blood 06/01/2024 9:49 AM [facility]ER 06/01/2024 9:51 AM [facility] us Prashant Nunez MD LAB BLOOD ORDERABLES Final Result [facility] [place] [address] * (ABNORMAL) Comprehensive metabolic panel (06/01/2024 9:49 AM [facility]ER) [facility] Sodium 136 135 - 145 mmol/L Comment:Testing performed by : [facility], [address] [place] [address] Potassium, pl 4.4 3.3 - 4.9 mmol/L [facility] Chloride 105 97 - 110 mmol/L [facility] CO2 21(L) 22 - 32 mmol/L [facility] Anion gap 10 2 - 15 mmol/L [facility] BUN 37(H) 6 - 25 mg/dL [facility] Creatinine 2.08(H) 0.60 - 1.10 mg/dL [facility] Glucose 180 70 - 199 mg/dL [facility] Comment: Interpretive Data Fasting glucose >/= 126 mg/dl is diagnostic for diabetes. Fasting is defined as no caloric intake for at least 8 hours. Fasting glucose between 100 mg/dl to 125 mg/dl is diagnostic of prediabetes. In a patient with classic symptoms of hyperglycemia or hyperglycemic crisis, a random glucose >/= 200 mg/dl is diagnostic for diabetes. In the absence of unequivocal hyperglycemia, results should be confirmed by repeat testing. The classification and Diagnosis of Diabetes Diabetes Care 2021; 46: S19-S40. Current interpretive data was last revised 2022. Calcium 9.4 8.5 - 10.3 mg/dL [facility] Bilirubin, total 0.2 0.1 - 1.2 mg/dL [facility] Comment:Repeated and verifie d. Protein, pl 7.4 6.5 - 8.5 g/dL [facility] Albumin 4.5 3.5 - 5.0 g/dL [facility] Alk phos 66 40 - 130 Units/L [facility] ALT 7 7 - 45 Units/L [facility] AST 28 10 - 45 Units/L [facility] Blood 06/01/2024 9:49 AM [facility]ER 06/01/2024 9:51 AM [facility] us Prashant Nunez MD LAB BLOOD ORDERABLES Final Result [facility] [place] [address] * NM Bone Imaging Whole Body (05/16/2024 11:19 AM [facility]) Anatomical Region Laterality Modality N/A Nuclear Medicine 05/16/2024 11:5 0 AM [facility] Impressions 05/16/2024 3:07 PM [facility] No scintigraphic evidence of osseous metastatic disease. Dictated by: Freddy Krause MD The radiology attending physician has personally reviewed this study, and had reviewed and/or edited this written report and agrees with it. Electronically signed by: Paul Davidson M.D. Narrative 05/16/2024 3:07 PM [facility] EXAMINATION: BONE SCINTIGRAPHY (WHOLE-BODY) DATE OF STUDY: 05/16/2024 RADIOPHARMACEUTICAL: 20.2 mCi Tc-99m MDP i.v. HISTORY: 73-year-old woman with urothelial carcinoma post radical cystectomy and anterior pelvic exenteration with ileal conduit (01/05/2018), adjuvant radiation therapy (completed October 2018), and adjuvant chemotherapy, undergoing evaluation for metastatic disease. FINDINGS: Delayed whole-body scintigrams were obtained. Prior nuclear medicine studies used for comparison: Whole-body bone scintigraphy 05/04/2023 and 08/17/2022 Other radiographic comparisons: CT 05/16/2024 Excreted radiotracer is noted along the right lower quadrant ileal conduit and within the ostomy bag overlying the right anterior hemipelvis. No suspicious uptake to suggest osseous metastatic disease. Degenerative-pattern uptake is noted within the shoulders, elbows, and cervical spine. Procedure Note Paul Davidson MD - 05/16/2024 EXAMINATION: BONE SCINTIGRAPHY (WHOLE-BODY) DATE OF STUDY: 05/16/2024 RADIOPHARMACEUTICAL: 20.2 mCi Tc-99m MDP i.v. HISTORY: 73-year-old woman with urothelial carcinoma post radical cystectomy and anterior pelvic exenteration with ileal conduit (01/05/2018), adjuvant radiation therapy (completed October 2018), and adjuvant chemotherapy, undergoing evaluation for metastatic disease. FINDINGS: Delayed whole-body scintigrams were obtained. Prior nuclear medicine studies used for comparison: Whole-body bone scintigraphy 05/04/2023 and 08/17/2022 Other radiographic comparisons: CT 05/16/2024 Excreted radiotracer is noted along the right lower quadrant ileal conduit and within the ostomy bag overlying the right anterior hemipelvis. No suspicious uptake to suggest osseous metastatic disease. Degenerative-pattern uptake is noted within the shoulders, elbows, and cervical spine. IMPRESSION: No scintigraphic evidence of osseous metastatic disease. Dictated by: Freddy Krause MD The radiology attending physician has personally reviewed this study, and had reviewed and/or edited this written report and agrees with it. Electronically signed by: Paul Davidson M.D. us Prashant Nunez MD IMG NM PROCEDURES Final Res ult * CT Chest Abdomen Pelvis WO Contrast (05/16/2024 8:42 AM [facility]ER) Anatomical Region Laterality Modality Body N/A Computed Tomogra phy 05/16/2024 9:06 AM [facility] Impressions 05/16/2024 9:06 AM [facility]ER 1. Stable appearance of right lower quadrant ileal conduit with mild right-sided hydronephrosis and hydroureter. 2. Interval increase in size in one of the patient's medial basal segment left lower lobe pulmonary nodules, from 1 mm to 5 mm. Given the presence of other small nodules, many of which are clustered, this could be an inflammatory nodule, perhaps related to an underlying chronic infection such as an atypical mycobacterium. I would recommend a follow-up chest CT in 3 months to evaluate if the nodule continues to enlarge. Electronically signed by: Tyree Baker M.D. Narrative 05/16/2024 9:06 AM [facility]ER Examination: Computed tomography of the chest, abdomen, and pelvis without intravenous contrast DATE: 05/16/2024. HISTORY: Bladder cancer. TECHNIQUE: Computed tomography of the chest, abdomen, and pelvis was obtained without intravenous contrast according to standard protocol. FINDINGS: Comparison is made to 05/04/2023. No supraclavicular, axillary, mediastinal, or hilar lymphadenopathy. Heart size is normal. There is tiny pericardial fluid. A 3 mm nodule in the right middle lobe is stable at scanner position 148. A 3 mm nodule in the anterior basal segment right lower lobe at scanner position 138 is stable. Nodule in the medial basal segment left lower lobe at scanner position 182 now measures 5 mm versus 1 mm on the prior. There are also a few other scattered areas of tiny cluster tree-in-bud nodules for example, in the right lower lobe at scanner position 130 in the right middle lobe mass scanner position 136; these are similar to prior exams. No consolidation. No pleural effusion or pneumothorax. Noncontrast evaluation of the liver is normal. There are cholecystectomy clips. Spleen is normal. Pancreas is normal. No adrenal lesions. There is a right lower quadrant ileal conduit. There is similar appearing mild right-sided hydroureter and hydronephrosis to the level of the conduit. The left ureter is similar and not dilated. The bladder has been resected. Uterus and ovaries are surgically absent. There is colonic diverticulosis without diverticulitis. No focal bowel wall thickening or obstruction. No omental lesion. No mesenteric lesions. No lymphadenopathy. Bone windows demonstrate no lytic or blastic lesions. Procedure Note Tyree Baker MD - 05/16/2024 Examination: Computed tomography of the chest, abdomen, and pelvis without intravenous contrast DATE: 05/16/2024. HISTORY: Bladder cancer. TECHNIQUE: Computed tomography of the chest, abdomen, and pelvis was obtained without intravenous contrast according to standard protocol. FINDINGS: Comparison is made to 05/04/2023. No supraclavicular, axillary, mediastinal, or hilar lymphadenopathy. Heart size is normal. There is tiny pericardial fluid. A 3 mm nodule in the right middle lobe is stable at scanner position 148. A 3 mm nodule in the anterior basal segment right lower lobe at scanner position 138 is stable. Nodule in the medial basal segment left lower lobe at scanner position 182 now measures 5 mm versus 1 mm on the prior. There are also a few other scattered areas of tiny cluster tree-in-bud nodules for example, in the right lower lobe at scanner position 130 in the right middle lobe mass scanner position 136; these are similar to prior exams. No consolidation. No pleural effusion or pneumothorax. Noncontrast evaluation of the liver is normal. There are cholecystectomy clips. Spleen is normal. Pancreas is normal. No adrenal lesions. There is a right lower quadrant ileal conduit. There is similar appearing mild right-sided hydroureter and hydronephrosis to the level of the conduit. The left ureter is similar and not dilated. The bladder has been resected. Uterus and ovaries are surgically absent. There is colonic diverticulosis without diverticulitis. No focal bowel wall thickening or obstruction. No omental lesion. No mesenteric lesions. No lymphadenopathy. Bone windows demonstrate no lytic or blastic lesions. IMPRESSION: 1. Stable appearance of right lower quadrant ileal conduit with mild right-sided hydronephrosis and hydroureter. 2. Interval increase in size in one of the patient's medial basal segment left lower lobe pulmonary nodules, from 1 mm to 5 mm. Given the presence of other small nodules, many of which are clustered, this could be an inflammatory nodule, perhaps related to an underlying chronic infection such as an atypical mycobacterium. I would recommend a follow-up chest CT in 3 months to evaluate if the nodule continues to enlarge. Electronically signed by: Tyree Baker M.D. us Prashant Nunez MD IMG CT PROCEDURES Final Res ult * COLONOSCOPY (05/30/2020 8:25 AM [facility]ER) Anatomical Region Laterality Modality Other Narrative Procedure Note Ralph Brown MD - 05/30/2020 8:25 AM CST [facility] Patient Name: Caitlin Nixon Procedure Date: 05/30/2020 8:25 AM Date of : 1950 Admit Type: Outpatient Age: 69 Gender: Female Attending MD: Ralph Brown M.D. Room: [facility] OPERATING ROOM 02 Note Status: Finalized Procedure: Colonoscopy Indications: Chronic diarrhea Referring MD: Cassidy Wellington MD Providers: Ralph Brown M.D. Medicines: Monitored Anesthesia Care Complications: No immediate complications. Estimated Blood Loss: Estimated blood loss was minimal. Procedure: Pre-Anesthesia Assessment: - Prior to the procedure, a History and Physicalwas performed, and patient medications, allergies and sensitivities were reviewed. The patient'stolerance of previous anesthesia was reviewed. - The risks and benefits of the procedure and the sedation options and risks were discussed with the patient. All questions were answered and informed consent was obtained. - Immediately prior to administration ofmedications, the patient was re-assessed for adequacy to receive sedatives. The benefits, risks and alternatives of theprocedure and sedation were discussed and informed consentwas obtained. All questions were answered. Please referto the signed informed consent document in the medical record. The scope was passed under direct vision.The [id number] was introduced through the anusand advanced to the the terminal ileum. The colonoscopy was performed without difficulty. The patient tolerated the procedure well. The quality of thebowel preparation was evaluated using the BBPS (BostonBowel Preparation Scale) with scores of: Right Colon = 3, Transverse Colon = 3 and Left Colon = 3 (entiremucosa seen well with no residual staining, smallfragments of stool or opaque liquid). The total BBPS score equals 9. The bowel preparation used was Miralaxvia split dose instruction. Findings: The terminal ileum appeared normal. Normal mucosa was found in the entire colon. Biopsies were taken witha cold forceps for histology. Two sessile polyps were found in the ascending colon. The polyps were5 to 7 mm in size. These polyps were removed with a cold snare.Resection and retrieval were complete. A 5 mm polyp was found in the sigmoid colon. The polyp was sessile.The polyp was removed with a cold snare. Resection and retrieval were complete. Multiple diverticula were found in the sigmoid colon. A benign-appearing, intrinsic mild stenosis was found at the anus.Mild associated angioectasia was present. Impression: - The examined portion of the ileum was normal. - Normal mucosa in the entire examined colon.Biopsied. - Two 5 to 7 mm polyps in the ascending colon,removed with a cold snare. Resected and retrieved. - One 5 mm polyp in the sigmoid colon, removed witha cold snare. Resected and retrieved. - Diverticulosis in the sigmoid colon. 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 Recommendation: - Await pathology results. - Repeat colonoscopy in 3 years for surveillance. - Return to my office as previously scheduled. Attending Participation: I personally performed the entire procedure. Electronically signed by Ralph Brown MD Ralph Brown M.D. 05/30/2020 9:09:34 AM . Number of Addenda: 0 Note Initiated On: 05/30/2020 8:25 AM Recognized by the [place] [employer] for promoting quality in endoscopy Ralph Brown MD ENDOSCOPY PROCEDURES Final Result from Last 3 Months or Most Recently Relevant to Health Maintenance Insurance [employer] MEDICARE PPO [employer] MEDICARE PPO MEDICARE HUMANA CHOICE MEDICARE PPO HUMANA CHOICE MEDICARE PPO Advance Directives For more information, please contact: [phone] * Full Code (Latest Code Status on File) Date Activated Date Inactivated Comments 04/06/2018 9:18 AM 04/06/2018 11:23 AM * Full Code Date Activated Date Inactivated Comments 04/06/2018 9:17 AM 04/06/2018 9:18 AM * Full Code Date Activated Date Inactivated Comments 01/05/2018 8:56 PM 01/10/2018 4:00 PM Care Teams Home Hospice Rn Relationship Specialty Start Date End Date Sharon Nye MD PCP - General Family Medicine 07/28/22 Bar Sotomayor MD Referring Physician Nephrology 12/17/17 Shabbir Villalpando MD Referring Physician Urology 12/27/17 Bertin Irby MD Title Inspector Gastroenterology 12/27/17 Prashant Nunez MD Medical Oncologist/Patcher Wood Welder Medical Oncology 01/28/18 Mike Rendon MD Radiation Oncologist Radiation Oncology 01/28/18 Shirley Martínez MD Radiation Oncologist Radiation Oncology 09/02/22
--- OUTSIDE RECORDS SUMMARY | 2024-07-07 07:59 | XMS_ITS | Encounter Summary ---
Author Organization [facility] Healthcare Address [address] [place] [address] Care Team Providers Care Windows Systems Engineer Name Role Phone Cassidy Wellington MD Primary Care Provider [phone] Bar Sotomayor MD Unavailable [phone] Shabbir Villalpando MD Unavailable [phone] Bertin Irby MD Unavailable [phone] Prashant Nunez MD Unavailable [phone] Mike Rendon MD Unavailable [phone] Sharon Ney MD Primary Care Provider + Shirley Martínez MD Unavailable [phone] Encounter Details Date Type Department Care Team (Late st Contact Info) Description 03/18/2018 Telephone [facility] Radiation Oncology [address] [facility] [place] [address] Milka Ny MA Social History Tobacco Use Types Packs/Day Years Used Date Smoking Tobacco: Never Smokeless Tobacco: Never Alcohol Use Standard Drinks/Week Comments No 0 (1 standard drink = 0.6 oz pur e alcohol) Comments No Sex and Gender Information Value Date Recorded Sex Assigned at Not on file Legal Sex Female 1:54 PM CDT Gender Identity Not on file Sexual Orientation Not on file 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 Medicine 09/02/17 07/27/22 Sharon Nye MD [address] [place], [facility] PCP - [facility] 07/28/22 Bar Sotomayor MD [address] [place] [address] Referring Physician Nephrology 12/17/17 Shabbir Villalpando MD [address] [place], [facility] Referring Physician Urology 12/27/17 Bertin Irby MD [address] [place], [facility] Endo Tech Gastroenterology 12/27/17 Prashant Nnuez MD [address] [place], [facility] Medical Oncologist/Lead Rider Medical Oncology 01/28/18 Mike Rnedon MD [address] [place] [address] Radiation Oncologist Radiation Oncology 01/28/18 Shirley Martínez MD [address] [place] [address] Radiation Oncologist Radiation Oncology 09/02/22 documented as of this encounter
--- OUTSIDE RECORDS SUMMARY | 2024-07-07 07:59 | XMS_ITS | Encounter Summary ---
Author Organization [facility] Healthcare Address [address] [place] [address] Care Team Providers Care Fan Engine Engineer Name Role Phone Cassidy Wellington MD Primary Care Provider [phone] Bar Sotomayor MD Unavailable [phone] Shabbir Villalpando MD Unavailable [phone] Bertin Irby MD Unavailable [phone] Prashant Nunez MD Unavailable [phone] Mike Rendon MD Unavailable [phone] Sharon Nye MD Primary Care Provider + Shirley Martínez MD Unavailable [phone] Encounter Details Date Type Department Care Team (Late st Contact Info) Description 09/09/2018 Telephone [facility] Advanced Medicine Radiation Oncology [address] [facility] [place] [address] Tootie Pereira RN Social History Tobacco Use Types Packs/Day Years [...] on filedocumented in this encounter Care Teams Fan Engine Engineer Relationship Specialty Start Date End Date Cassidy Wellington MD [address] [place] [address] PCP - [facility] Medicine 09/02/17 07/27/22 Sharon Nye MD [address] [place], [place] [address] PCP - [facility] 07/28/22 Bar Sotomayor MD [address] [place], [facility] Referring Physician Nephrology 12/17/17 Shabbir Villalpando MD [address] [place], [facility] Referring Physician Urology 12/27/17 Bertin Irby MD [address] [place], [facility] Electronics Engineering Technologist Gastroenterology 12/27/17 Prashant Nunez MD [address] [place], [facility] Medical Oncologist/Hot Top Liner Helper Medical Oncology 01/28/18 Mike Rendon MD [address] [place] [address] Radiation Oncologist Radiation Oncology 01/28/18 Shirley Martínez MD [address] [place] [address] Radiation Oncologist Radiation Oncology 09/02/22 documented as of this encounter
--- OUTSIDE RECORDS SUMMARY | 2024-07-07 07:59 | XMS_ITS | Referral Summary ---
Author Organization [facility] Address [address] [place] [id number] Care Team Providers Care Training Representative Name Role Phone Bar Sotomayor MD Unavailable [phone] Shabbir Villalpando MD Unavailable [phone] Bertin Irby MD Unavailable [phone] Prashant Nunez MD Unavailable [phone] Mike Rendon MD Unavailable [phone] Sharon Nye MD Primary Care Provider + Shirley Martínez MD Unavailable [phone] Encounters Date Type Department Care Team Description 06/02/2024 Telephone [facility] Oncology [address] [place] [phone] Cris Martin RN 06/01/2024 9:20 AM POWERHOUSE HELPER Office Visit [facility] Oncology [address] [place] [phone] Prashant Nunez MD Urethral cancer (HCC) (Primary Dx); Malignant neoplasm of urinary bladder, unspecified site (HCC) 06/01/2024 8:45 AM POWERHOUSE HELPER Lab [address] [address] Malignant neoplasm of urinary bladder, unspecified site (HCC) 05/16/2024 6:58 AM POWERHOUSE HELPER - 05/16/2024 11:59 PM POWERHOUSE HELPER Hospital Encounter [facility] Radiology [facility] ([facility]) [address] [place] [address] Prashant Nunez MD Malignant neoplasm of urinary bladder, unspecified site (HCC) Discharge Disposition: Discharge to home or self care 05/16/2024 6:58 AM POWERHOUSE HELPER - 05/16/2024 11:59 PM POWERHOUSE HELPER Hospital Encounter [facility] [address] [place] [address] Discharge Disposition: Discharge to home or self care 05/16/2024 6:55 AM POWERHOUSE HELPER - 05/16/2024 11:59 PM POWERHOUSE HELPER Hospital Encounter [facility] [address] [place] [address] Malignant neoplasm of urinary bladder, unspecified site (HCC) Discharge Disposition: Discharge to home or self care from Last 3 Months Allergies Active Allergy Reactions Criticality Noted Date [...] instructions on package. For any questions call [phone]. 4000 mL [address] (PROTONIX) [...] Acute postoperative abdominal pain S/P exploratory laparotomy Immunizations Immunization Administration Dates Next Due Influenza, Quadrivalent, Ayana l Culture-based MDCK, Preservative Free, Antibiotic Free, Intramuscular 06/08/2019 Influenza, Quadrivalent, Rec ombinant, Egg Free, Preservative Free, Intramuscular 01/28/2018 Social History Tobacco Use Types Packs/Day Years [...] file Not on file Not on file Last Filed Vital Signs Vital Sign Reading Time Taken Comments Blood Pressure 146/86 06/01/2024 9:00 AM POWERHOUSE HELPER Taken twice. Sat in alot of traffic. Pulse 89 06/01/2024 9:00 AM POWERHOUSE HELPER Temperature 36.7 C (98 F) 06/01/2024 9:00 AM POWERHOUSE HELPER Respiratory Rate 22 06/01/2024 9:00 AM POWERHOUSE HELPER Oxygen Saturation 100% 06/01/2024 9:0 0 AM POWERHOUSE HELPER Inhaled Oxygen Concentration - - Weight 61.9 kg (136 lb 6.4 oz) 06/01/2024 9:00 AM POWERHOUSE HELPER Height 159.5 cm (5' 2.8 ) 06/01/2024 9: 00 AM POWERHOUSE HELPER Body Mass Index 24.32 06/01/2024 9:00 AM POWERHOUSE HELPER Plan of Treatment Not on file Medical Devices Implanted Type Area Human Services Supervisor Device Identifier Shelf Expiration Date Model / Serial / Lot [employer] [id number] Xcela 8fr 1.6mm 1 Lumen Power Injectable Attach Catheter Fill - [id number] - [id number] Implanted:Qty: 1 on 04/06/2018 at [facility] Catheter Right: Chest [employer] 11/15/2022 [id number] / [id number] / Procedures Procedure Name Priority Date/Time Associated Diagnosis Comments EGFR Routine 06/01/2024 9:49 AM POWERHOUSE HELPER Malignant neoplasm of urinary bladder, unspecified site (HCC) DIFFERENTIAL AUTO Routine 06/01/2024 9:4 9 AM POWERHOUSE HELPER Malignant neoplasm of urinary bladder, unspecified site (HCC) CBC WITH AUTO DIFFERENTIAL Routine 06/01/2024 9:49 AM POWERHOUSE HELPER Malignant neoplasm of urinary bladder, unspecified site (HCC) COMPREHENSIVE METABOLIC PANEL Routine 06/01/2024 9:49 AM POWERHOUSE HELPER Malignant neoplasm of urinary bladder, unspecified site (HCC) NM BONE IMAGING WHOLE BODY Schedule Routine, Read Routine (OP Routine) 05/16/2024 11:19 AM POWERHOUSE HELPER Malignant neoplasm of urinary bladder, unspecified site (HCC) CT CHEST ABDOMEN PELVIS WO CONTRAST Schedule Routine, Read Routine (OP Routine) 05/16/2024 8:42 AM POWERHOUSE HELPER Malignant neoplasm of urinary bladder, unspecified site (HCC) COLONOSCOPY 05/30/2020 8:25 AM POWERHOUSE HELPER from Last 3 Months or Most Recently Relevant to Health Maintenance Results * (ABNORMAL) eGFR (06/01/2024 9:49 AM POWERHOUSE HELPER) eGFR 25(L) >=60 mL/min/1. 73 m2 Comment: [...] last reviewed 2021. Blood 06/01/2024 9:49 AM POWERHOUSE HELPER 06/01/2024 9:51 AM POWERHOUSE HELPER us Prashant Nunez MD LAB BLOOD ORDERABLES Final Result [facility] Department [place] [address] * Differential, auto (06/01/2024 9:49 AM POWERHOUSE HELPER) Neutrophil abs 4.9 1.5 - 6.5 K/cumm Comment:Testing performed by : [facility], [address] [place] [address] Imm gran abs 0.1 0.0 - 0.1 K/cumm [facility] Lymphocyte abs 1.8 0.8 - 3.3 K/cumm [facility] Monocyte abs 0.8 0.2 - 0.8 K/cumm [facility] Eosinophil abs 0.2 0.0 - 0.5 K/cumm [facility] Basophil abs 0.1 0.0 - 0.1 K/cumm [facility] Neutrophil pct 62.6 % [facility] Comment: Interpretive Data Percent cell count reference ranges are not reported, since discordance with absolute values may lead to misinterpretation of CBC data. Current Interpretive Data was last revised on 2017. Imm gran pct 1.8 % [facility] Comment: Interpretive Data Percent cell count reference ranges are not reported, since discordance with absolute values may lead to misinterpretation of CBC data. Current Interpretive Data was last revised on 2017. Lymphocyte pct 22.4 % [facility] Comment: Interpretive Data Percent cell count reference ranges are not reported, since discordance with absolute values may lead to misinterpretation of CBC data. Current Interpretive Data was last revised on 2017. Monocyte pct 10.0 % [facility] Comment: Interpretive Data Percent cell count reference ranges are not reported, since discordance with absolute values may lead to misinterpretation of CBC data. Current Interpretive Data was last revised on 2017. Eosinophil pct 2.4 % [facility] Comment: Interpretive Data Percent cell count reference ranges are not reported, since discordance with absolute values may lead to misinterpretation of CBC data. Current Interpretive Data was last revised on 2017. Basophil pct 0.8 % [facility] Comment: Interpretive Data Percent cell count reference ranges are not reported, since discordance with absolute values may lead to misinterpretation of CBC data. Current Interpretive Data was last revised on 2017. Blood 06/01/2024 9:49 AM POWERHOUSE HELPER 06/01/2024 9:51 AM POWERHOUSE HELPER us Prashant Nunez MD LAB BLOOD ORDERABLES Final Result [facility] Department [place] [address] * (ABNORMAL) CBC with auto differential (06/01/2024 9:49 AM POWERHOUSE HELPER) [facility] WBC 7.8 3.8 - 9.9 K/cumm Comment:Testing performed by : [facility], [address] [place] [address] Hgb 9.4(L) 11.9 - 15.5 g/dL [facility] Comment:Testing performed by : [address] [address] Hct 28.1(L) 35.6 - 45.5 % [facility] Comment:Testing performed by : [address] [address] Plt 314 150 - 400 K/cumm [facility] Comment:Testing performed by : [address] [address] MPV 9.5 9.1 - 12.3 fL [facility] RBC 3.18(L) 3.90 - 5.20 M/cumm [facility] MCV 88.4 81.3 - 96.4 fL [facility] MCH 29.6 27.1 - 33.3 pg [facility] MCHC 33.5 32.3 - 35.7 g/dL [facility] RDW CV 13.1 11.1 - 14.9 % [facility] RDW SD 41.9 35.7 - 48.1 fL [facility] NRBC abs 0.00 0.00 - 0.01 K/cumm [facility] Blood 06/01/2024 9:49 AM POWERHOUSE HELPER 06/01/2024 9:51 AM POWERHOUSE HELPER us Prashant Nunez MD LAB BLOOD ORDERABLES Final Result [facility] Department [place] [address] * (ABNORMAL) Comprehensive metabolic panel (06/01/2024 9:49 AM POWERHOUSE HELPER) [facility] Sodium 136 135 - 145 mmol/L Comment:Testing performed by : [facility], [address] [address] Potassium, pl 4.4 3.3 - 4.9 mmol/L [facility] Chloride 105 97 - 110 mmol/L [facility] CO2 21(L) 22 - 32 mmol/L [facility] Anion gap 10 2 - 15 mmol/L [facility] BUN 37(H) 6 - 25 mg/dL [facility] Creatinine 2.08(H) 0.60 - 1.10 mg/dL [facility] Glucose 180 70 - 199 mg/dL [facility] Comment: Interpretive Data Fasting glucose [...] 2022. Calcium 9.4 8.5 - 10.3 mg/dL [facility] Bilirubin, total 0.2 0.1 - 1.2 mg/dL [facility] Comment:Repeated and verifie d. Protein, pl 7.4 6.5 - 8.5 g/dL [facility] Albumin 4.5 3.5 - 5.0 g/dL [facility] Alk phos 66 40 - 130 Units/L [facility] ALT 7 7 - 45 Units/L [facility] AST 28 10 - 45 Units/L [facility] Blood 06/01/2024 9:49 AM POWERHOUSE HELPER 06/01/2024 9:51 AM POWERHOUSE HELPER us Prashant Nunez MD LAB BLOOD ORDERABLES Final Result [facility] Department [place] [address] * NM Bone Imaging Whole Body (05/16/2024 11:19 AM POWERHOUSE HELPER) Anatomical Region Laterality Modality N/A Nuclear Medicine 05/16/2024 11:5 0 AM POWERHOUSE HELPER Impressions 05/16/2024 3:07 PM POWERHOUSE HELPER No scintigraphic evidence of osseous metastatic disease. Dictated by: Freddy Krause MD The radiology attending physician has personally reviewed this study, and had reviewed and/or edited this written report and agrees with it. Electronically signed by: Paul Davidson M.D. Narrative 05/16/2024 3:07 PM POWERHOUSE HELPER EXAMINATION: BONE SCINTIGRAPHY (WHOLE-BODY) DATE OF STUDY: [...] it. Electronically signed by: Paul Davidson M.D. Prashant Nunez MD IM NM PROCEDURES Final Res ult * CT Chest Abdomen Pelvis WO Contrast (05/16/2024 8:42 AM POWERHOUSE HELPER) Anatomical Region Laterality Modality Body N/A Computed Tomogra phy 05/16/2024 9:06 AM POWERHOUSE HELPER Impressions 05/16/2024 9:06 AM POWERHOUSE HELPER 1. Stable appearance of right lower quadrant [...] Tyree Baker M.D. Narrative 05/16/2024 9:06 AM POWERHOUSE HELPER Examination: Computed tomography of the chest, abdomen, [...] Res ult * COLONOSCOPY (05/30/2020 8:25 AM POWERHOUSE HELPER) Anatomical Region Laterality Modality Other Narrative Procedure Note Ralph Brown MD - 05/30/2020 8:25 AM CST [facility] Patient Name: Caitlin Nixon Procedure Date: 05/30/2020 8:25 AM Date of : 1950 Admit Type: Outpatient Age: 69 Gender: Female Attending MD: Ralph Brown M.D. Room: [facility] 02 Note Status: Finalized Procedure: [...] The scope was passed under direct vision.The [id number] was introduced through the anusand advanced to [...] On: 05/30/2020 8:25 AM Recognized by the [place] [employer] for promoting quality in endoscopy Ralph Brown MD ENDOSCOPY PROCEDURES Final Result from Last 3 Months or Most Recently Relevant to Health Maintenance Insurance [employer] CHO[employer] MEDICARE PPO [employer] CHOICE MEDICARE PPO MEDICARE [employer] CHOICE MEDICARE PPO [employer] CHOICE MEDICARE PPO Advance Directives For more information, please contact: [phone] * Full Code (Latest Code Status on File) Date Activated Date Inactivated Comments 04/06/2018 9:18 AM 04/06/2018 11:23 AM * Full Code Date Activated Date Inactivated Comments 04/06/2018 9:17 AM 04/06/2018 9:18 AM * Full Code Date Activated Date Inactivated Comments 01/05/2018 8:56 PM 01/10/2018 4:00 PM Care Teams Training Representative Relationship Specialty Start Date End Date Sharon Nye MD PCP - General Family Medicine 07/28/22 Bar Sotomayor MD Referring Physician Nephrology 12/17/17 Shabbir Villalpando MD Referring Physician Urology 12/27/17 Bertin Irby MD Weed Inspector Gastroenterology 12/27/17 Prashant Nunez MD Medical Oncologist/Dental Technician Medical Oncology 01/28/18 Mike Rendon MD Radiation Oncologist Radiation Oncology 01/28/18 Shirley Martínez MD Radiation Oncologist Radiation Oncology 09/02/22
--- OUTSIDE RECORDS SUMMARY | 2024-07-07 07:59 | XMS_ITS | Clinical Summary ---
Author Organization [facility] Address [address] [place] [address] Phone Care Team Providers Care Gun Synchronizer Name Role Phone Kobe Wellington MD Primary Care Provider [phone] Medications Medication Sig Dispensed Refills Start Date End Date Status levothyroxine (SYNTHROID, LEVOTHROID) 125 MCG tablet 1 daily 0 10/11/2016 Active caffeine 200 MG tablet half as needed 0 10/11/2016 Active Multiple Vitamins-Minerals (PRESERVISION AREDS) capsule 1 dialy 0 10/11/2016 Active raNITIdine (ZANTAC) 75 MG tablet 1 daily as needed 0 05/24/2017 Active diphenhydrAMINE (DIPHENHIST) 25 MG capsule 1 as needed 0 10/11/2016 Active aspirin 81 MG chewable tablet 1 daily 0 10/11/2016 Active sodium chloride 1 g tablet 1 bid for 4 days. collect urine on the 4th day. 0 06/20/2017 Active ferrous sulfate 325 (65 Fe) MG tablet 1 daily 0 10/11/2016 Active SITagliptin (JANUVIA) 100 MG tablet 1 daily 0 10/11/2016 Active atorvastatin (LIPITOR) 10 MG tablet 0 10/11/2016 Active Multiple Vitamin (MULTIVITAMIN) capsule 1 dialy 0 10/11/2016 Ac tive losartan (COZAAR) 25 MG tablet 1 daily 0 02/16/2018 Active Active Problems Problem Noted Date Diagnosed Date Hyperlipidemia 02/16/2018 Type 2 diabetes mellitus without complication Chronic kidney disease, stage 3 (moderate) 02/01 Essential (primary) hypertension 02/01/2017 Family History Medical History Relation Comments Kidney disease Sibling Kidney stone Neg Hx Relation Status Comments Sibling Social History Tobacco Use Types Packs/Day Years Used Date Smoking Tobacco: Never Sex and Gender Information Value Date Recorded Sex Assigned at Not on file Gender Identity Not on file Sexual Orientation Not on file Last Filed Vital Signs Vital Sign Reading Time Taken Comments Blood Pressure 128/70 02/16/2018 12:01 AM SALES TRAINEE Pulse 84 02/16/2018 12:01 AM SALES TRAINEE Temperature 36.7 C (98 F) 02/16/2018 12:01 AM SALES TRAINEE Respiratory Rate - - Oxygen Saturation - - Inhaled Oxygen Concentration - - Weight 50.8 kg (112 lb) 02/16/2018 12:01 AM SALES TRAINEE Height 162.6 cm (5' 4 ) 02/16/2018 12:01 AM SALES TRAINEE Body Mass Index 19.22 02/16/2018 12:01 AM SALES TRAINEE Plan of Treatment Health Maintenance Due Date Last Done Comments Pneumococcal PPSV23/PCV13 65 + Years / Low and Medium Risk (1 of 4 - PCV) 2014 Influenza Vaccine (#1) 2023 Care Teams Gun Synchronizer Relationship Specialty Start Date End Date Kobe Wellington MD [address] [place] [id number] PCP - General Internal Medicine 06/09/18
--- OUTSIDE RECORDS SUMMARY | 2024-07-07 07:59 | XMS_ITS | Encounter Summary ---
Author Organization [facility] Healthcare Address [address] [place] [address] Care Team Providers Care Caustic Liquor Maker Name Role Phone Cassidy Wellington MD Primary Care Provider [phone] Bar Sotomayor MD Unavailable [phone] Shabbir Villalpando MD Unavailable [phone] Bertin Irby MD Unavailable [phone] Prashant Nunez MD Unavailable [phone] Mike Rendon MD Unavailable [phone] Sharon Nye MD Primary Care Provider + Shirley Martínez MD Unavailable [phone] Encounter Details Date Type Department Care Team (Late st Contact Info) Description 02/17/[address] [facility] Radiation Oncology [address] [facility] [place] [address] Milka Ny MA Social History Tobacco Use [...] on filedocumented in this encounter Care Teams Caustic Liquor Maker Relationship Specialty Start Date End Date Cassidy Wellington MD [address] [place] [address] [facility] 09/02/17 07/27/22 Sharon Nye MD [address] [place], [facility] PCP - [facility] 07/28/22 Bar Sotomayor MD [address] [place] [address] Referring Physician Nephrology 12/17/17 Shabbir Villalpando MD [address] [place], [facility]34 Referring Physician Urology 12/27/17 Bertin Irby MD [address] [place], [facility]34 Museum Registrar Gastroenterology 12/27/17 Prashant Nunez MD [address] [place], [facility] Medical Oncologist/Tower Attendant Medical Oncology 01/28/18 Mike Rendon MD [address] [place] [address] Radiation Oncologist Radiation Oncology 01/28/18 Shirley Martínez MD [address] [place] [address] Radiation Oncologist Radiation Oncology 09/02/22 documented as of this encounter
--- OUTSIDE RECORDS SUMMARY | 2024-07-07 07:59 | XMS_ITS ---
Author Organization [facility] Address [address] [place] [address] Care Team Providers Care Business Applications Analyst Name Role Phone Bar Sotomayor MD Unavailable [phone] Shabbir Villalpando MD Unavailable [phone] Bertin Irby MD Unavailable [phone] Prashant Nunez MD Unavailable [phone] Mike Rendon MD Unavailable [phone] Sharon Nye MD Primary Care Provider + Shirley Martínez MD Unavailable [phone] Active Problems Problem Noted Date Diagnosed Date [...] Acute postoperative abdominal pain S/P exploratory laparotomy Current Treatment and Therapy Plans No current plan information found. Past Treatment and Therapy Plans Oncology Chemotherapy Treatment Plan Name Start Date Discontinue Date Treatment Medications Discontinue Reason Plan Provider Cycles PACLItaxel / CARBOplatin 21 Day Cycles - Bladder 9 08/19/2022 CARBOplatin (PARAPLATIN) IVPB in 250 mLPACLItaxel (TAXOL) IVPB in 500 mL Therapy Complete Prashant Nunez MD 4 of 4 cycles started Specialty Infusion Treatment Plan Name Start Date Discontinue Date Treatment Medications Discontinue Reason Plan Provider IV MAINTENANCE THERAPY PLAN 05/05/2018 02/10/2023 No medications scheduled. Automatic discontinuation of dormant plans Prashant Nunez MD Radiation Treatments * Course [id number] 09/14/2018 - 10/27/2018 Treatment Period Energy Fraction Dose Fractions Total Dose Plans Planned BOOST 10/26/2018 - 10/27/2018 180 2 / 360 URETHRA 10/04/2018 - 10/25/2018 180 23 / 4,140 Reference Points Delivered [id number]_5040 10/26/2018 - 10/27/2018 360 PTV_4140 10/04/2018 - 10/25/2018 4,139 * Course C1 09/14/2018 - 10/03/2018 Treatment Period Energy Fraction Dose Fractions Total Dose Plans Planned URETHRA 09/14/2018 - 10/03/2018 180 9 / 4,140 Reference Points Delivered PTV_4140 09/14/2018 - 10/03/2018 1,620 Lifetime Dose Tracking * Chemical Lifetime Dose Automatic Entry Manual Entr y Fluoro Time 5.65 minutes 5.65 minutes 0 minutes Air kerma at the reference point (Ka,r) 334.59 mGy 3 34.59 mGy 0 mGy DLP 8,111 mGycm 8,111 mGycm 0 mGycm
--- OUTSIDE RECORDS SUMMARY | 2024-07-07 07:59 | XMS_ITS | Encounter Summary ---
Author Organization [facility] Address [address] [place] [address] Phone Care Team Providers Care Clinching Machine Operator Name Role Phone Cassidy Wellington MD Primary Care Provider [phone] Bar Sotomayor MD Unavailable [phone] Shabbir Villalpando MD Unavailable [phone] Bertin Irby MD Unavailable [phone] Prashant Nunez MD Unavailable [phone] Mike Rendon MD Unavailable [phone] Sharon Nye MD Primary Care Provider + Shirley Martínez MD Unavailable [phone] Encounter Details Date Type Department Care Team (Latest Contact Info) Description 04/11/2020 Orders Only [facility] ONCOLOGY Scanning, Provider Social History Tobacco Use Types Packs/Day Years [...] on file documented as of this encounter Procedures Procedure Name Priority Date/Time Associated Diagnosis Comments SCAN - LABS 04/11/2020 documented in this encounter Results * SCAN - LABS (04/11/2020) us Provider Scanning Final Result documented in this encounter Visit Diagnoses Not on filedocumented in this encounter Care Teams Clinching Machine Operator Relationship Specialty Start Date End Date Cassidy Wellington MD [address] [place], [facility]34 PCP - General Family Medicine 09/02/17 07/27/22 Sharon Nye MD [address] [place], [facility]34 PCP - General Family Medicine 07/28/22 Bar Sotomayor MD [address] [place], [facility]34 Referring Physician Nephrology 12/17/17 Shabbir Villalpando MD [address] [place], [facility]34 Referring Physician Urology 12/27/17 Bertin Irby MD [address] [place], [facility]34 Kosher Dietary Service Supervisor Gastroenterology 12/27/17 Prashant Nunez MD [address] [place], [facility]34 Medical Oncologist/Packaging Line Operator Medical Oncology 01/28/18 Mike Rendon MD [address] [place], [facility]34 Radiation Oncologist Radiation Oncology 01/28/18 Shirley Martínez MD [address] [place], [facility] Radiation Oncologist Radiation Oncology 09/02/22 documented as of this encounter
[2024-07-07 08:11] VITALS: BP 140/78; PULSE 100; RESP 18; O2SAT 100
[2024-07-07 08:40] LABS: Basophils Percent Auto 0.2 % (0.2-1.2); Eosinophils Percent Auto 0.2 % (0-4.4); Hematocrit 30.5 % (37.0-47.0); Immature Granulocyte Absolute 0.12 K/mm3 (0.00-0.031); Immature Granulocyte Percent A 0.9 % (0-0.5); Lymphocytes Absolute Auto 0.72 K/mm3 (0.9-3.2); Lymphocytes Percent Auto 5.5 % (18.3-44.2); Mean Corpuscular HGB Conc 32.8 g/dl (32-36); Mean Corpuscular Hemoglobin 29.6 pg (26-34); Mean Corpuscular Volume 90.2 fl (80-100); Mean Platelet Volume 9.6 fl (7.4-10.4); Monocytes Percent Auto 7.6 % (2.6-8.5); Neutrophils Absolute Auto 11.1 K/mm3 (1.3-6.7); Neutrophils Percent Auto 85.6 % (45.5-73.1); Platelet Count Result 247 k/mm3 (150-375); Red Blood Count 3.38 M/mm3 (4.2-5.4); Red Cell Distribution Width 13.5 % (11.5-14.5)
--- OUTSIDE RECORDS SUMMARY | 2024-07-07 08:40 | XMS_ITS | Encounter Summary ---
Author Organization [facility] Healthcare Address [address] [place] [address] Care Team Providers Care Nursery Attendant Name Role Phone Cassidy Wellington MD Primary Care Provider [phone] Bar Sotomayor MD Unavailable [phone] Shabbir Villalpando MD Unavailable [phone] Bertin Irby MD Unavailable [phone] Prashant Nunez MD Unavailable [phone] Mike Rendon MD Unavailable [phone] Sharon Nye MD Primary Care Provider + Shirley Martínez MD Unavailable [phone] Encounter Details Date Type Department Care Team (Late st Contact Info) Description 02/17/2018 Telephone [facility] Radiation Oncology [address] [facility] [place] [address] Milka Ny MA Social History Tobacco Use [...] on filedocumented in this encounter Care Teams Nursery Attendant Relationship Specialty Start Date End Date Cassidy Wellington MD [address] [place] [address] [facility] 09/02/17 07/27/22 Sharon Nye MD [address] [place], [facility]34 PCP - [facility] 07/28/22 Bar Sotomayor MD [address] [place] [address] Referring Physician Nephrology 12/17/17 Shabbir Villalpando MD [address] [place], [facility]34 Referring Physician Urology 12/27/17 Bertin Irby MD [address] [place], [facility]34 Uke Operator Gastroenterology 12/27/17 Prashant Nunez MD [address] [place], [facility]34 Medical Oncologist/Ticket Seller Medical Oncology 01/28/18 Mike Rendon MD [address] [place] [address] Radiation Oncologist Radiation Oncology 01/28/18 Shirley Martínez MD [address] [place] [address] Radiation Oncologist Radiation Oncology 09/02/22 documented as of this encounter
--- OUTSIDE RECORDS SUMMARY | 2024-07-07 08:40 | XMS_ITS ---
Author Organization [facility] Address [address] [place] [address] Care Team Providers Care Intelligence Officer Name Role Phone Bar Sotomayor MD Unavailable [phone] Shabbir Villalpando MD Unavailable [phone] Bertin Irby MD Unavailable Prashant Nunez MD Unavailable [phone] Mike Rendon MD Unavailable [phone] Sharon Nye MD Primary Care Provider + Shirley Martínez MD Unavailable [phone] Active Problems Problem Noted Date Diagnosed Date [...]
--- OUTSIDE RECORDS SUMMARY | 2024-07-07 08:40 | XMS_ITS | Clinical Summary ---
Author Organization [facility] Address [address] [place] [address] Care Team Providers Care Design Printing Machine Setter Name Role Phone Bar Sotomayor MD Unavailable [phone] Shabbir Villalpando MD Unavailable [phone] Bertin Irby MD Unavailable [phone] Prashant Nunez MD Unavailable [phone] Mike Rendon MD Unavailable [phone] Sharon Nye MD Primary Care Provider + Shirley Martínez MD Unavailable [phone] Allergies Active Allergy Reactions Criticality Noted [...] instructions on package. For any questions call [phone]. 4000 mL [address] (PROTONIX) [...] Type Department Care Team Description 06/02/2024 Telephone [facility] Oncology [address] [place] [address] Cris Martin RN 06/01/2024 9:20 AM FRAME CARVER SPINDLE Office Visit [facility] Oncology [address] [place] [address] Prashant Nunez MD Urethral cancer (HCC) (Primary Dx); Malignant neoplasm of urinary bladder, unspecified site (HCC) 06/01/2024 8:45 AM FRAME CARVER SPINDLE Lab [address] [address] Malignant neoplasm of urinary bladder, unspecified site (HCC) 05/16/2024 6:58 AM FRAME CARVER SPINDLE - 05/16/2024 11:59 PM FRAME CARVER SPINDLE Hospital Encounter [facility] [address] [place] [address] Discharge Disposition: Discharge to home or self care 05/16/2024 6:58 AM FRAME CARVER SPINDLE - 05/16/2024 11:59 PM FRAME CARVER SPINDLE Hospital Encounter [facility] ([facility]) [address] [place] [address] Prashant Nunez MD Malignant neoplasm of urinary bladder, unspecified site (HCC) Discharge Disposition: Discharge to home or self care 05/16/2024 6:55 AM FRAME CARVER SPINDLE - 05/16/2024 11:59 PM FRAME CARVER SPINDLE Hospital Encounter [facility] ([facility]) [address] [place] [address] Malignant neoplasm of urinary bladder, unspecified site [...] Comments Blood Pressure 146/86 06/01/2024 9:00 AM FRAME CARVER SPINDLE Taken twice. Sat in alot of traffic. Pulse 89 06/01/2024 9:00 AM FRAME CARVER SPINDLE Temperature 36.7 C (98 F) 06/01/2024 9:00 AM FRAME CARVER SPINDLE Respiratory Rate 22 06/01/2024 9:00 AM FRAME CARVER SPINDLE Oxygen Saturation 100% 06/01/2024 9:0 0 AM FRAME CARVER SPINDLE Inhaled Oxygen Concentration - - Weight 61.9 kg (136 lb 6.4 oz) 06/01/2024 9:00 AM FRAME CARVER SPINDLE Height 159.5 cm (5' 2.8 ) 06/01/2024 9: 00 AM FRAME CARVER SPINDLE Body Mass Index 24.32 06/01/2024 9:00 AM FRAME CARVER SPINDLE Plan of Treatment Health Maintenance Due Date [...] Discontinued 05/07 Medical Devices Implanted Type Area Supervisor Welding Equipment Repairer Device Identifier Shelf Expiration Date Model / Serial / Lot [employer] [id number] Xcela 8fr 1.6mm 1 Lumen Power Injectable Attach Catheter Fill - [id number] - [id number] Implanted:Qty: 1 on 04/06/2018 at [facility] Catheter Right: Chest [employer] 11/15/2022 [id number] / [id number] / Procedures Procedure Name Priority Date/Time Associated Diagnosis Comments EGFR Routine 06/01/2024 9:49 AM FRAME CARVER SPINDLE Malignant neoplasm of urinary bladder, unspecified site (HCC) DIFFERENTIAL AUTO Routine 06/01/2024 9:4 9 AM FRAME CARVER SPINDLE Malignant neoplasm of urinary bladder, unspecified site (HCC) CBC WITH AUTO DIFFERENTIAL Routine 06/01/2024 9:49 AM FRAME CARVER SPINDLE Malignant neoplasm of urinary bladder, unspecified site (HCC) COMPREHENSIVE METABOLIC PANEL Routine 06/01/2024 9:49 AM FRAME CARVER SPINDLE Malignant neoplasm of urinary bladder, unspecified site (HCC) NM BONE IMAGING WHOLE BODY Schedule Routine, Read Routine (OP Routine) 05/16/2024 11:19 AM FRAME CARVER SPINDLE Malignant neoplasm of urinary bladder, unspecified site (HCC) CT CHEST ABDOMEN PELVIS WO CONTRAST Schedule Routine, Read Routine (OP Routine) 05/16/2024 8:42 AM FRAME CARVER SPINDLE Malignant neoplasm of urinary bladder, unspecified site (HCC) COLONOSCOPY 05/30/2020 8:25 AM FRAME CARVER SPINDLE from Last 3 Months or Most Recently Relevant to Health Maintenance Results * (ABNORMAL) eGFR (06/01/2024 9:49 AM FRAME CARVER SPINDLE) eGFR 25(L) >=60 mL/min/1. 73 m2 Comment: [...] last reviewed 2021. Blood 06/01/2024 9:49 AM FRAME CARVER SPINDLE 06/01/2024 9:51 AM FRAME CARVER SPINDLE Prashant Nunez MD LAB BLOOD ORDERABLES Final Result [facility] Department [place] [address] * Differential, auto (06/01/2024 9:49 AM FRAME CARVER SPINDLE) Pathologist [facility] Neutrophil abs 4.9 1.5 - 6.5 K/cumm Comment:Testing performed by : [facility], [address] [place] [address] Imm gran abs 0.1 0.0 - 0.1 K/cumm [facility] Lymphocyte abs 1.8 0.8 - 3.3 K/cumm [facility] Monocyte abs 0.8 0.2 - 0.8 K/cumm [facility] Eosinophil abs 0.2 0.0 - 0.5 K/cumm [facility] Basophil abs 0.1 0.0 - 0.1 K/cumm [facility] Neutrophil pct 62.6 % [facility] Comment: Interpretive Data Percent cell count reference ranges are not reported, since discordance with absolute values may lead to misinterpretation of CBC data. Current Interpretive Data was last revised on 2017. Imm gran pct 1.8 % CERNER [facility] Comment: Interpretive Data Percent cell count reference ranges are not reported, since discordance with absolute values may lead to misinterpretation of CBC data. Current Interpretive Data was last revised on 2017. Lymphocyte pct 22.4 % SUKHI [facility] Comment: Interpretive Data Percent cell count reference ranges are not reported, since discordance with absolute values may lead to misinterpretation of CBC data. Current Interpretive Data was last revised on 2017. Monocyte pct 10.0 % SUKHI [facility] Comment: Interpretive Data Percent cell count reference ranges are not reported, since discordance with absolute values may lead to misinterpretation of CBC data. Current Interpretive Data was last revised on 2017. Eosinophil pct 2.4 % CERTAHIRA [facility] Comment: Interpretive Data Percent cell count reference ranges are not reported, since discordance with absolute values may lead to misinterpretation of CBC data. Current Interpretive Data was last revised on 2017. Basophil pct 0.8 % SUKH[facility] Comment: Interpretive Data Percent cell count reference ranges are not reported, since discordance with absolute values may lead to misinterpretation of CBC data. Current Interpretive Data was last revised on 2017. Blood 06/01/2024 9:49 AM FRAME CARVER SPINDLE 06/01/2024 9:51 AM FRAME CARVER SPINDLE us Prashant Nunez MD LAB BLOOD ORDERABLES Final Result Performing Organization Address City/State/[facility] Co de Phone Number [facility] Department [place] [address] * (ABNORMAL) CBC with auto differential (06/01/2024 9:49 AM FRAME CARVER SPINDLE) WBC 7.8 3.8 - 9.9 K/cumm Comment:Testing performed by : [address] [address] Hgb 9.4(L) 11.9 - 15.5 g/dL SUKHI [facility]ELGAR Comment:Testing performed by : [address] [address] Hct 28.1(L) 35.6 - 45.5 % [facility] Comment:Testing performed by : [facility], [address] [place] [address] Plt 314 150 - 400 K/cumm [facility] Comment:Testing performed by : [facility], [address] [place] [address] MPV 9.5 9.1 - 12.3 fL [facility] RBC 3.18(L) 3.90 - 5.20 M/cumm [facility] MCV 88.4 81.3 - 96.4 fL [facility] MCH 29.6 27.1 - 33.3 pg [facility] MCHC 33.5 32.3 - 35.7 g/dL [facility] RDW CV 13.1 11.1 - 14.9 % [facility] RDW SD 41.9 35.7 - 48.1 fL [facility] NRBC abs 0.00 0.00 - 0.01 K/cumm [facility] Blood 06/01/2024 9:49 AM FRAME CARVER SPINDLE 06/01/2024 9:51 AM FRAME CARVER SPINDLE us Prashant Nunez MD LAB BLOOD ORDERABLES Final Result [facility] Department [place] [address] * (ABNORMAL) Comprehensive metabolic panel (06/01/2024 9:49 AM FRAME CARVER SPINDLE) [facility] Sodium 136 135 - 145 mmol/L Comment:Testing performed by : [facility], [address] [place] [address] Potassium, pl 4.4 3.3 - 4.9 mmol/L [facility] Chloride 105 97 - 110 mmol/L [facility] CO2 21(L) 22 - 32 mmol/L [facility] Anion gap 10 2 - 15 mmol/L [facility] BUN 37(H) 6 - 25 mg/dL [facility] Creatinine 2.08(H) 0.60 - 1.10 mg/dL [facility] Glucose 180 70 - 199 mg/dL [facility] Comment: Interpretive Data Fasting glucose >/= 126 [...] 2022. Calcium 9.4 8.5 - 10.3 mg/dL [facility] Bilirubin, total 0.2 0.1 - 1.2 mg/dL [facility] Comment:Repeated and verifie d. Protein, pl 7.4 6.5 - 8.5 g/dL [facility] Albumin 4.5 3.5 - 5.0 g/dL [facility] Alk phos 66 40 - 130 Units/L [facility] ALT 7 7 - 45 Units/L [facility] AST 28 10 - 45 Units/L [facility] Blood 06/01/2024 9:49 AM FRAME CARVER SPINDLE 06/01/2024 9:51 AM FRAME CARVER SPINDLE us Prashant Nunez MD LAB BLOOD ORDERABLES Final Result [facility] Department [place] [address] * NM Bone Imaging Whole Body (05/16/2024 11:19 AM FRAME CARVER SPINDLE) Anatomical Region Laterality Modality N/A Nuclear Medicine 05/16/2024 11:5 0 AM FRAME CARVER SPINDLE Impressions 05/16/2024 3:07 PM FRAME CARVER SPINDLE No scintigraphic evidence of osseous metastatic disease. Dictated by: Freddy Krause MD The radiology attending physician has personally reviewed this study, and had reviewed and/or edited this written report and agrees with it. Electronically signed by: Paul Davidson M.D. Narrative 05/16/2024 3:07 PM FRAME CARVER SPINDLE EXAMINATION: BONE SCINTIGRAPHY (WHOLE-BODY) DATE OF STUDY: [...] Abdomen Pelvis WO Contrast (05/16/2024 8:42 AM FRAME CARVER SPINDLE) Anatomical Region Laterality Modality Body N/A Computed Tomogra phy 05/16/2024 9:06 AM FRAME CARVER SPINDLE Impressions 05/16/2024 9:06 AM FRAME CARVER SPINDLE 1. Stable appearance of right lower quadrant [...] Tyree Baker M.D. Narrative 05/16/2024 9:06 AM FRAME CARVER SPINDLE Examination: Computed tomography of the chest, abdomen, [...] Res ult * COLONOSCOPY (05/30/2020 8:25 AM FRAME CARVER SPINDLE) Anatomical Region Laterality Modality Other Narrative Procedure Note Ralph Brown MD - 05/30/2020 8:25 AM CST [facility] Patient Name: Caitlin Nixon Procedure Date: 05/30/2020 8:25 AM Date of : 1950 Admit Type: Outpatient Age: 69 Gender: Female Attending MD: Ralph Brown M.D. Room: [facility] OPERATING ROOM 02 Note Status: Finalized [...] The scope was passed under direct vision.The [id number] was introduced through the anusand advanced to [...] On: 05/30/2020 8:25 AM Recognized by the [place] [employer] for promoting quality in endoscopy Ralph Brown MD ENDOSCOPY PROCEDURES Final Result from Last 3 Months or Most Recently Relevant to Health Maintenance Insurance [employer] - [employer] MEDIC[employer] PPO [employer] MEDICARE PPO MEDICARE [employer] MEDICARE PPO [employer] MEDICARE PPO Advance Directives For more information, please contact: [phone] * Full Code (Latest Code Status on File) Date Activated Date Inactivated Comments 04/06/2018 9:18 AM 04/06/2018 11:23 AM * Full Code Date Activated Date Inactivated Comments 04/06/2018 9:17 AM 04/06/2018 9:18 AM * Full Code Date Activated Date Inactivated Comments 01/05/2018 8:56 PM 01/10/2018 4:00 PM Care Teams Design Printing Machine Setter Relationship Specialty Start Date End Date Sharon Nye MD PCP - General Family Medicine 07/28/22 Bra Sotomayor MD Referring Physician Nephrology 12/17/17 Shabbir Villalpando MD Referring Physician Urology 12/27/17 Bertin Irby MD Sound Person Gastroenterology 12/27/17 Prashant Nunez MD Medical Oncologist/Electronic Industrial Controls Mechanic Medical Oncology 01/28/18 Mike Rendon MD Radiation Oncologist Radiation Oncology 01/28/18 Shirley Martínez MD Radiation Oncologist Radiation Oncology 09/02/22
--- OUTSIDE RECORDS SUMMARY | 2024-07-07 08:40 | XMS_ITS | Encounter Summary ---
Author Organization [facility] Address [address] [place] [address] Phone Care Team Providers Care Conveyor Worker Name Role Phone Cassidy Wellington MD Primary Care Provider [phone] Bar Sotomayor MD Unavailable [phone] Shabbir Villalpando MD Unavailable [phone] Bertin Irby MD Unavailable [phone] Prashant Nunez MD Unavailable [phone] Mike Rendon MD Unavailable [phone] Sharon Nye MD Primary Care Provider + Shirley Martínez MD Unavailable [phone] Encounter Details Date Type Department Care Team [...] on filedocumented in this encounter Care Teams Conveyor Worker Relationship Specialty Start Date End Date Cassidy Wellington MD [address] [place], [facility] PCP - General Family Medicine 09/02/17 07/27/22 Sharon Nye MD [address] [place], [facility] PCP - General Family Medicine 07/28/22 Bar Sotomayor MD [address] [place], [facility] Referring Physician Nephrology 12/17/17 Shabbir Villalpando MD [address] [place], [facility] Referring Physician Urology 12/27/17 Bertin Irby MD [address] [place], [facility] University Intern Gastroenterology 12/27/17 Prashant Nunez MD [address] [place], [facility] Medical Oncologist/Corporate Concierge Medical Oncology 01/28/18 Mike Rendon MD [address] [place], [facility] Radiation Oncologist Radiation Oncology 01/28/18 Shirley Martínez MD [address] [place], [facility] Radiation Oncologist Radiation Oncology 09/02/22 documented as of this encounter
--- OUTSIDE RECORDS SUMMARY | 2024-07-07 08:40 | XMS_ITS | Referral Summary ---
Author Organization [facility] Address [address] [place] [address] Care Team Providers Care Hazardous Substances Engineer Name Role Phone Bar Sotomayor MD Unavailable [phone] Shabbir Villalpando MD Unavailable [phone] Bertin Irby MD Unavailable [phone] Prashant Nunez MD Unavailable [phone] Mike Rendon MD Unavailable + [phone] Sharon Nye MD Primary Care Provider + Shirley Martínez MD Unavailable [phone] Encounters Date Type Department Care Team Description 06/02/2024 Telephone [facility] Oncology [address] [place] [phone] Cris Martin RN 06/01/2024 9:20 AM LOUVER DOOR ASSEMBLER Office Visit [facility] Oncology [address] [place] [phone] Prashant Nunez MD Urethral cancer (HCC) (Primary Dx); Malignant neoplasm of urinary bladder, unspecified site (HCC) 06/01/2024 8:45 AM LOUVER DOOR ASSEMBLER Lab [address] [address] Malignant neoplasm of urinary bladder, unspecified site (HCC) 05/16/2024 6:58 AM LOUVER DOOR ASSEMBLER - 05/16/2024 11:59 PM LOUVER DOOR ASSEMBLER Hospital Encounter [facility] [address] [place] [address] Prashant Nunez MD Malignant neoplasm of urinary bladder, unspecified site (HCC) Discharge Disposition: Discharge to home or self care 05/16/2024 6:58 AM LOUVER DOOR ASSEMBLER - 05/16/2024 11:59 PM LOUVER DOOR ASSEMBLER Hospital Encounter [facility] [address] [place] [address] Discharge Disposition: Discharge to home or self care 05/16/2024 6:55 AM LOUVER DOOR ASSEMBLER - 05/16/2024 11:59 PM LOUVER DOOR ASSEMBLER Hospital Encounter [facility] [address] [place] [address] Malignant neoplasm of urinary bladder, unspecified site [...] instructions on package. For any questions call [phone]. 4000 mL [address] (PROTONIX) [...] Comments Blood Pressure 146/86 06/01/2024 9:00 AM LOUVER DOOR ASSEMBLER Taken twice. Sat in alot of traffic. Pulse 89 06/01/2024 9:00 AM LOUVER DOOR ASSEMBLER Temperature 36.7 C (98 F) 06/01/2024 9:00 AM LOUVER DOOR ASSEMBLER Respiratory Rate 22 06/01/2024 9:00 AM LOUVER DOOR ASSEMBLER Oxygen Saturation 100% 06/01/2024 9:0 0 AM LOUVER DOOR ASSEMBLER Inhaled Oxygen Concentration - - Weight 61.9 kg (136 lb 6.4 oz) 06/01/2024 9:00 AM LOUVER DOOR ASSEMBLER Height 159.5 cm (5' 2.8 ) 06/01/2024 9: 00 AM LOUVER DOOR ASSEMBLER Body Mass Index 24.32 06/01/2024 9:00 AM LOUVER DOOR ASSEMBLER Plan of Treatment Not on file Medical Devices Implanted Type Area Roustabout Crew Leader Device Identifier Shelf Expiration Date Model / Serial / Lot [employer] [id number] Xcela 8fr 1.6mm 1 Lumen Power Injectable Attach Catheter Fill - [id number] - [id number] Implanted:Qty: 1 on 04/06/2018 at [facility] Catheter Right: Chest [employer] 11/15/2022 [id number] / [id number] / Procedures Procedure Name Priority Date/Time Associated Diagnosis Comments EGFR Routine 06/01/2024 9:49 AM LOUVER DOOR ASSEMBLER Malignant neoplasm of urinary bladder, unspecified site (HCC) DIFFERENTIAL AUTO Routine 06/01/2024 9:4 9 AM LOUVER DOOR ASSEMBLER Malignant neoplasm of urinary bladder, unspecified site (HCC) CBC WITH AUTO DIFFERENTIAL Routine 06/01/2024 9:49 AM LOUVER DOOR ASSEMBLER Malignant neoplasm of urinary bladder, unspecified site (HCC) COMPREHENSIVE METABOLIC PANEL Routine 06/01/2024 9:49 AM LOUVER DOOR ASSEMBLER Malignant neoplasm of urinary bladder, unspecified site (HCC) NM BONE IMAGING WHOLE BODY Schedule Routine, Read Routine (OP Routine) 05/16/2024 11:19 AM LOUVER DOOR ASSEMBLER Malignant neoplasm of urinary bladder, unspecified site (HCC) CT CHEST ABDOMEN PELVIS WO CONTRAST Schedule Routine, Read Routine (OP Routine) 05/16/2024 8:42 AM LOUVER DOOR ASSEMBLER Malignant neoplasm of urinary bladder, unspecified site (HCC) COLONOSCOPY 05/30/2020 8:25 AM LOUVER DOOR ASSEMBLER from Last 3 Months or Most Recently Relevant to Health Maintenance Results * (ABNORMAL) eGFR (06/01/2024 9:49 AM LOUVER DOOR ASSEMBLER) eGFR 25(L) >=60 mL/min/1. 73 m2 Comment: [...] last reviewed 2021. Blood 06/01/2024 9:49 AM LOUVER DOOR ASSEMBLER 06/01/2024 9:51 AM LOUVER DOOR ASSEMBLER us Prashant Nunez MD LAB BLOOD ORDERABLES Final Result [facility] [place] [address] * Differential, auto (06/01/2024 9:49 AM LOUVER DOOR ASSEMBLER) Neutrophil abs 4.9 1.5 - 6.5 K/cumm Comment:Testing performed by : [facility], [address] [place] [address] Imm gran abs 0.1 0.0 - 0.1 K/cumm [facility] Lymphocyte abs 1.8 0.8 - 3.3 K/cumm [facility] Monocyte abs 0.8 0.2 - 0.8 K/cumm [facility] Eosinophil abs 0.2 0.0 - 0.5 K/cumm [facility] Basophil abs 0.1 0.0 - 0.1 K/cumm [facility] Neutrophil pct 62.6 % [facility] Comment: Interpretive Data Percent cell count reference ranges are not reported, since discordance with absolute values may lead to misinterpretation of CBC data. Current Interpretive Data was last revised on 2017. Imm gran pct 1.8 % [facility] Comment: Interpretive Data Percent cell count reference ranges are not reported, since discordance with absolute values may lead to misinterpretation of CBC data. Current Interpretive Data was last revised on 2017. Lymphocyte pct 22.4 % [facility] Comment: Interpretive Data Percent cell count reference ranges are not reported, since discordance with absolute values may lead to misinterpretation of CBC data. Current Interpretive Data was last revised on 2017. Monocyte pct 10.0 % [facility] Comment: Interpretive Data Percent cell count reference ranges are not reported, since discordance with absolute values may lead to misinterpretation of CBC data. Current Interpretive Data was last revised on 2017. Eosinophil pct 2.4 % [facility] Comment: Interpretive Data Percent cell count reference ranges are not reported, since discordance with absolute values may lead to misinterpretation of CBC data. Current Interpretive Data was last revised on 2017. Basophil pct 0.8 % [facility] Comment: Interpretive Data Percent cell count reference ranges are not reported, since discordance with absolute values may lead to misinterpretation of CBC data. Current Interpretive Data was last revised on 2017. Blood 06/01/2024 9:49 AM LOUVER DOOR ASSEMBLER 06/01/2024 9:51 AM LOUVER DOOR ASSEMBLER us Prashant Nunez MD LAB BLOOD ORDERABLES Final Result [facility] [place] [address] * (ABNORMAL) CBC with auto differential (06/01/2024 9:49 AM LOUVER DOOR ASSEMBLER) [facility] WBC 7.8 3.8 - 9.9 K/cumm Comment:Testing performed by : [facility], [address] [place] [address] Hgb 9.4(L) 11.9 - 15.5 g/dL [facility] Comment:Testing performed by : [address] [address] Hct 28.1(L) 35.6 - 45.5 % [facility] Comment:Testing performed by : [address] [address] Plt 314 150 - 400 K/cumm [facility] Comment:Testing performed by : [address] [address] MPV 9.5 9.1 - 12.3 fL [facility] RBC 3.18(L) 3.90 - 5.20 M/cumm [facility] MCV 88.4 81.3 - 96.4 fL [facility] MCH 29.6 27.1 - 33.3 pg [facility] MCHC 33.5 32.3 - 35.7 g/dL [facility] RDW CV 13.1 11.1 - 14.9 % [facility] RDW SD 41.9 35.7 - 48.1 fL [facility] NRBC abs 0.00 0.00 - 0.01 K/cumm [facility] Blood 06/01/2024 9:49 AM LOUVER DOOR ASSEMBLER 06/01/2024 9:51 AM LOUVER DOOR ASSEMBLER us Prashant Nunez MD LAB BLOOD ORDERABLES Final Result [facility] [place] [address] * (ABNORMAL) Comprehensive metabolic panel (06/01/2024 9:49 AM LOUVER DOOR ASSEMBLER) [facility] Sodium 136 135 - 145 mmol/L Comment:Testing performed by : [facility], [address] [facility] [address] Potassium, pl 4.4 3.3 - 4.9 mmol/L [facility] Chloride 105 97 - 110 mmol/L [facility] CO2 21(L) 22 - 32 mmol/L [facility] Anion gap 10 2 - 15 mmol/L [facility] BUN 37(H) 6 - 25 mg/dL [facility] Creatinine 2.08(H) 0.60 - 1.10 mg/dL [facility] Glucose 180 70 - 199 mg/dL [facility] Comment: Interpretive Data Fasting glucose >/= [...] 2022. Calcium 9.4 8.5 - 10.3 mg/dL [facility] Bilirubin, total 0.2 0.1 - 1.2 mg/dL [facility] Comment:Repeated and verifie d. Protein, pl 7.4 6.5 - 8.5 g/dL [facility] Albumin 4.5 3.5 - 5.0 g/dL [facility] Alk phos 66 40 - 130 Units/L [facility] ALT 7 7 - 45 Units/L [facility] AST 28 10 - 45 Units/L [facility] Blood 06/01/2024 9:49 AM LOUVER DOOR ASSEMBLER 06/01/2024 9:51 AM LOUVER DOOR ASSEMBLER us Prashant Nunez MD LAB BLOOD ORDERABLES Final Result [facility] [place] [address] * NM Bone Imaging Whole Body (05/16/2024 11:19 AM LOUVER DOOR ASSEMBLER) Anatomical Region Laterality Modality N/A Nuclear Medicine 05/16/2024 11:5 0 AM LOUVER DOOR ASSEMBLER Impressions 05/16/2024 3:07 PM LOUVER DOOR ASSEMBLER No scintigraphic evidence of osseous metastatic disease. Dictated by: Freddy Krause MD The radiology attending physician has personally reviewed this study, and had reviewed and/or edited this written report and agrees with it. Electronically signed by: Paul Davidson M.D. Narrative 05/16/2024 3:07 PM LOUVER DOOR ASSEMBLER EXAMINATION: BONE SCINTIGRAPHY (WHOLE-BODY) DATE OF STUDY: [...] Abdomen Pelvis WO Contrast (05/16/2024 8:42 AM LOUVER DOOR ASSEMBLER) Anatomical Region Laterality Modality Body N/A Computed Tomogra phy 05/16/2024 9:06 AM LOUVER DOOR ASSEMBLER Impressions 05/16/2024 9:06 AM LOUVER DOOR ASSEMBLER 1. Stable appearance of right lower quadrant [...] Tyree Baker M.D. Narrative 05/16/2024 9:06 AM LOUVER DOOR ASSEMBLER Examination: Computed tomography of the chest, abdomen, [...] Res ult * COLONOSCOPY (05/30/2020 8:25 AM LOUVER DOOR ASSEMBLER) Anatomical Region Laterality Modality Other Narrative Procedure Note Ralph Brown MD - 05/30/2020 8:25 AM CST [facility] Patient Name: Caitlin Nixon Procedure Date: 05/30/2020 8:25 AM Date of : 1950 Admit Type: Outpatient Age: 69 Gender: Female Attending MD: Ralph Brown M.D. Room: [facility] OPERATING ROOM 02 Note Status: [...] The scope was passed under direct vision.The [id number] was introduced through the anusand advanced to [...] On: 05/30/2020 8:25 AM Recognized by the [employer] for promoting quality in endoscopy Ralph Brown MD ENDOSCOPY PROCEDURES Final Result from Last 3 Months or Most Recently Relevant to Health Maintenance Insurance [employer]ICE MEDICARE PPO [employer] CHOICE MEDICARE PPO MEDICARE [employer] MEDICARE PPO [employer] MEDICARE PPO Advance Directives For more information, please contact: [phone] * Full Code (Latest Code Status on File) Date Activated Date Inactivated Comments 04/06/2018 9:18 AM 04/06/2018 11:23 AM * Full Code Date Activated Date Inactivated Comments 04/06/2018 9:17 AM 04/06/2018 9:18 AM * Full Code Date Activated Date Inactivated Comments 01/05/2018 8:56 PM 01/10/2018 4:00 PM Care Teams Hazardous Substances Engineer Relationship Specialty Start Date End Date Sharon Nye MD PCP - General Family Medicine 07/28/22 Bar Sotomayor MD Referring Physician Nephrology 12/17/17 Shabbir Villalpando MD Referring Physician Urology 12/27/17 Bertin Irby MD Family Services Specialist Gastroenterology 12/27/17 Prashant Nunez MD Medical Oncologist/Student Officer Medical Oncology 01/28/18 Mike Rendon MD Radiation Oncologist Radiation Oncology 01/28/18 Shirley Martínez MD Radiation Oncologist Radiation Oncology 09/02/22
--- OUTSIDE RECORDS SUMMARY | 2024-07-07 08:40 | XMS_ITS | Encounter Summary ---
Author Organization [facility] Healthcare Address [address] [place] [address] Care Team Providers Care Waste Handling Technician Name Role Phone Cassidy Wellington MD Primary Care Provider [phone] Bar Sotomayor MD Unavailable [phone] Shabbir Villalpando MD Unavailable [phone] Bertin Irby MD Unavailable [phone] Prashant Nunez MD Unavailable [phone] Mike Rendon MD Unavailable [phone] Sharon Nye MD Primary Care Provider + Shirley Martínez MD Unavailable [phone] Encounter Details Date Type Department Care Team (Late st Contact Info) Description 03/18/2018 Telephone [facility] Radiation Oncology [address] [facility] [place] [address] Milka Ny MA Social History Tobacco Use [...] on filedocumented in this encounter Care Teams Waste Handling Technician Relationship Specialty Start Date End Date Cassidy Wellington MD [address] [place] [address] PCP - [facility] Medicine 09/02/17 07/27/22 Sharon Nye MD [address] [place], [facility] PCP - [facility] 07/28/22 Bar Sotomayor MD [address] [place] [address] Referring Physician Nephrology 12/17/17 Shabbir Villalpando MD [address] [place], [facility]34 Referring Physician Urology 12/27/17 Bertin Irby MD [address] [place], [facility]34 Acupressurist Gastroenterology 12/27/17 Prashant Nunez MD [address] [place], [facility]34 Medical Oncologist/Tmh Teacher Medical Oncology 01/28/18 Mike Rendon MD [address] [place] [address] Radiation Oncologist Radiation Oncology 01/28/18 Shirley Martínez MD [address] [place] [address] Radiation Oncologist Radiation Oncology 09/02/22 documented as of this encounter
--- OUTSIDE RECORDS SUMMARY | 2024-07-07 08:40 | XMS_ITS | Encounter Summary ---
Author Organization [facility] Healthcare Address [address] [place] [address] Care Team Providers Care Electric Powerline Examiner Name Role Phone Cassidy Wellington MD Primary Care Provider [phone] Bar Sotomayor MD Unavailable [phone] Shabbir Villalpando MD Unavailable [phone] Bertin Irby MD Unavailable [phone] Prashant Nunez MD Unavailable [phone] Mike Rendon MD Unavailable [phone] Sharon Nye MD Primary Care Provider + Shirley Martínez MD Unavailable [phone] Encounter Details Date Type Department Care Team (Late st Contact Info) Description 09/09/2018 Telephone [facility] Radiation Oncology [address] [facility] [place] [address] Tootie Pereira RN Social History [...] on filedocumented in this encounter Care Teams Electric Powerline Examiner Relationship Specialty Start Date End Date Cassidy Wellington MD [address] [place] [address] PCP - [facility] Medicine 09/02/17 07/27/22 Sharon Nye MD [address] [place], [place] [address] PCP - [facility] 07/28/22 Bar Sotomayor MD [address] [place], [facility] Referring Physician Nephrology 12/17/17 Shabbir Villalpando MD [address] [place], [facility] Referring Physician Urology 12/27/17 Bertin Irby MD [address] [place], [facility]34 Line Patrolman Gastroenterology 12/27/17 Prashant Nunez MD [address] [place], [facility] Medical Oncologist/Export Traffic Department Manager Medical Oncology 01/28/18 Mike Rendon MD [address] [place] [address] Radiation Oncologist Radiation Oncology 01/28/18 Shirley Martínez MD [address] [place] [address] Radiation Oncologist Radiation Oncology 09/02/22 documented as of this encounter
--- OUTSIDE RECORDS SUMMARY | 2024-07-07 08:40 | XMS_ITS | Clinical Summary ---
Author Organization [facility] Address [address] [place] [address] Phone Care Team Providers Care Retail Team Leader Name Role Phone Kobe Wellington MD Primary Care Provider [phone] Medications Medication Sig Dispensed Refills Start Date [...] Comments Blood Pressure 128/70 02/16/2018 12:01 AM ANIMAL HERDER Pulse 84 02/16/2018 12:01 AM ANIMAL HERDER Temperature 36.7 C (98 F) 02/16/2018 12:01 AM ANIMAL HERDER Respiratory Rate - - Oxygen Saturation - - Inhaled Oxygen Concentration - - Weight 50.8 kg (112 lb) 02/16/2018 12:01 AM ANIMAL HERDER Height 162.6 cm (5' 4 ) 02/16/2018 12:01 AM ANIMAL HERDER Body Mass Index 19.22 02/16/2018 12:01 AM ANIMAL HERDER Plan of Treatment Health Maintenance Due Date Last Done Comments Pneumococcal PPSV23/PCV13 65 + Years / Low and Medium Risk (1 of 4 - PCV) 2014 Influenza Vaccine (#1) 2023 Care Teams Retail Team Leader Relationship Specialty Start Date End Date Kobe Wellington MD [address] [place] [id number] PCP - General Internal Medicine 06/09/18
--- NOTE | 2024-07-07 08:45 | ED_ITS ---
HPI - General Adult General Chief complaint: Abdominal Pain Stated complaint: I think I have appendicitis R sided abd pain Time Seen by Provider: 07/07/24 08:03 History of Present Illness HPI narrative: [age] old female presents emergency department for evaluation for abdominal pressure and right lower quadrant tenderness. Patient states the stent discharged yesterday and did worsen throughout the day. Patient does have a prior history of bladder cancer and does have a urostomy in place. Patient also has a prior history of appendicitis and September 2019 to but did not have an appendectomy at that time. Patient is concerned that the current pain is associated with her appendix. Patient also does complain of increased cough and congestion that has been ongoing since May. 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 In 2017 she was found to have cancer of the urinary bladder which extended to include the urethra. In January of 2018 she underwent radical cystectomy with anterior pelvic exenteration as the bladder cancer invaded her vagina. 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 She had some additional radiation therapy as there was a positive margin at the resection but not extensive radiation therapy due to her prior pelvic radiation therapy for anal canal cancer. Related Data Home Medications ?Medication ?Instructions ?Recorded ?Confirmed ?Last Taken ?Type aspirin 81 mg tablet,delayed 81 mg PO DAILY 06/17/22 04/21/24 Unknown History release (Adult Low Dose Aspirin) cholecalciferol (vitamin D3) 25 25 mcg PO DAILY 06/17/22 04/21/24 Unknown History mcg (1,000 unit) capsule vitamin B complex 1 tablet PO DAILY 06/17/22 04/21/24 Unknown History cinnamon bark 500 mg capsule 500 mg PO DAILY 10/19/23 04/21/24 Unknown History (Cinnamon) coenzyme Q10 200 mg capsule (Co 200 mg PO DAILY 10/19/23 04/21/24 Unknown History Q-10) ferrous sulfate 325 mg (65 mg 325 mg PO DAILY 10/19/23 04/21/24 Unknown History iron) tablet,delayed release reserateal w/EGC[employer] BYMOUTH 10/19/23 04/21/24 Unknown History Allergies Allergy/AdvReac Type Severity Reaction Status Date / Time lisinopril Allergy Unknown Cough Verified 07/07/24 08:16 Review of Systems 2 Review of Systems: All systems reviewed & are unremarkable except as noted in HPI and below PMFSH Past Medical History Medical History 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 Hypothyroidism, unspecified 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 1 Essential (primary) hypertension Type 2 diabetes mellitus with diabetic cataract Surgical History Surgical History History of urostomy History of total cystectomy Family History Family History Sibling Family history of malignant neoplasm of ovary Social History Social History Smoking status: Never smoker Second hand tobacco smoke exposure: No Alcohol intake: never Substance use: never Do You Feel Safe in your Home?: Yes Lack of Transportation: No Lack of Food: Never True Current Housing: I Have Housing Concerned About Future Housing: No Difficulty Paying Gas/Electric Bills: No Difficulty Paying for Meds: No Currently Unemployed: No Education: High School Diploma/GED Difficulty w/ Childcare or Family Care: No Occupation/Education: retired Gender identity (if verbalized by the patient): Female Spiritual care concerns: No Exam 2 Narrative: APPEARANCE: Well appearing, no pain, no distress, well-nourished. HEAD: normocephalic, atraumatic. EYES: PERRLA/EOMI, conjunctivae clear. NOSE: Normal no drainage EARS:TMS clear with good light reflex. THROAT: Pharynx clear, no exudate. NECK: Supple. No adenopathy, no masses. RESPIRATORY: Airway patent, respirations nonlabored. Clear to auscultation bilaterally, no rales, rhonchi, wheezing. CARDIOVASCULAR: Regular rate and rhythm without murmurs rubs or gallops. ABDOMINAL: Right lower quadrant tenderness to palpation MUSCULOSKELETAL: Moves all extremities. Strength/ROM intact, No edema, No calf tenderness. NEURO: Alert. Cranial nerves II through XII intact. SKIN: Warm, dry. Normal Color Course Vital Signs Vital signs: Vital Signs Pulse Rate 100 07/07/24 08:11 Respiratory Rate 18 07/07/24 08:11 Blood Pressure 140/78 07/07/24 08:11 Pulse Oximetry 100 07/07/24 08:11 Oxygen Delivery Room Air 07/07/24 08:11 Temperature 98.6 F 07/07/24 15:10 Pulse Rate 89 07/07/24 15:10 Respiratory Rate 18 07/07/24 15:10 Blood Pressure 116/62 07/07/24 15:10 Pulse Oximetry 98 07/07/24 15:10 Oxygen Delivery Room Air 07/07/24 08:11 Medical Decision Making MDM Narrative Medical decision making narrative: [age] old female presenting to the emergency department for evaluation for right lower quadrant pain. Patient does have acute appendicitis with a leukocytosis of 13,000. Patient does have acute on chronic kidney injury. Patient was treated with a L of IV fluids along with starting IV Zosyn. Case was discussed with our surgeon but he felt that the case was to complicated and high risk for our hospital did recommend transfer to [facility] were patient has had her previous reconstructive surgery. I discussed the case with Dr. Vicente and patient was accepted for transfer. Patient was updated on the plans for transfer. All questions were addressed. Differential Diagnosis Differential Diagnosis: Colitis, diverticulitis, appendicitis, small-bowel obstruction, UTI Vital Signs Vital Signs: Vital Signs Pulse Rate 100 07/07/24 08:11 Respiratory Rate 18 07/07/24 08:11 Blood Pressure 140/78 07/07/24 08:11 Pulse Oximetry 100 07/07/24 08:11 Oxygen Delivery Room Air 07/07/24 08:11 Temperature 98.6 F 07/07/24 15:10 Pulse Rate 89 07/07/24 15:10 Respiratory Rate 18 07/07/24 15:10 Blood Pressure 116/62 07/07/24 15:10 Pulse Oximetry 98 07/07/24 15:10 Oxygen Delivery Room Air 07/07/24 08:11 Lab Data Lab results reviewed: Yes I reviewed the patient's lab results. 07/07/24 08:27 07/07/24 08:27 Labs: Lab Results 07/07/24 07/07/24 Range/Units 08:27 08:45 WBC 13.0 H (4.5-10.0) K/mm3 RBC 3.38 L (4.2-5.4) M/mm3 Hgb 10.0 L (12.0-15.0) g/dL Hct 30.5 L (37.0-47.0) % MCV 90.2 (80-100) fl MCH 29.6 (26-34) pg MCHC 32.8 (32-36) g/dl RDW 13.5 (11.5-14.5) % Plt Count 247 (150-375) k/mm3 MPV 9.6 (7.4-10.4) fl Immature Gran % (Auto) 0.9 H (0-0.5) % Neut % (Auto) 85.6 H (45.5-73.1) % Lymph % (Auto) 5.5 L (18.3-44.2) % [place] % (Auto) 7.6 (2.6-8.5) % Eos % (Auto) 0.2 (0-4.4) % Baso % (Auto) 0.2 (0.2-1.2) % Lymph # (Auto) 0.72 L (0.9-3.2) K/mm3 [place] # (Auto) 1.0 H (0.1-0.6) K/mm3 Eos # (Auto) 0.0 (0-0.3) K/mm3 Baso # (Auto) 0.0 (0.0-0.1) K/mm3 Abs Immat Gran (auto) 0.12 H (0.00-0.031) K/mm3 Absolute Neuts (auto) 11.1 H (1.3-6.7) K/mm3 Absolute Nucleated RBC 0.000 (0.0-0.012) K/mm3 Nucleated RBC % 0.0 (0.0-0.2) % PT 13.0 (11.1-14.7) Seconds INR 1.0 APTT 26.4 (22.3-36.8) Seconds Sodium 130 L (137-145) mmol/L Potassium 4.5 (3.4-5.0) mmol/L Chloride 104 (98-107) mmol/L Carbon Dioxide 13 L (22-30) mmol/L Anion Gap 13 H (4-12) mmol/L BUN 38 H D (7-17) mg/dL Creatinine 2.67 H (0.7-1.0) mg/dL Estim Creat Clear Calc 14 ml/min Estimated GFR 17 L (59 - ) Glucose 303 H (65-110) mg/dL Lactic Acid 1.3 (0.7-2.0) mmol/L Calcium 9.2 (8.4-10.2) mg/dL Total Bilirubin 0.5 (0.2-1.3) mg/dL AST 25 (14-36) U/L ALT 13 (6-35) U/L Alkaline Phosphatase 85 (38-126) U/L Total Protein 8.0 (6.3-8.2) g/dL Albumin 4.4 (3.5-5.1) g/dL Lipase 65 (23-300) U/L Urine Color Yellow (Yellow) Urine Appearance Cloudy H (Clear) Urine pH >=9.0 H (5.0-9.0) Ur Specific [place] 1.012 (1.001-1.035) Urine Protein 3+ H (Negative) mg/dL Urine Glucose (UA) Trace H (Negative) mg/dL Urine Ketones Negative (Negative) mg/dL Ur Blood (Man) Negative (Negative) Urine Nitrate Negative (Negative) Urine Bilirubin Negative (Negative) Urine Urobilinogen 0.2 (<2.0) mg/dL Leukocyte Esterase Rfl Trace H (Negative) STEPHANIE/UL Urine RBC 0-2 (0-2) /hpf Urine WBC 6-10 H (0-3) /hpf Ur Squamous Epith Cells Occasional (Few) /hpf Urine Bacteria 4+ H /hpf Urine Casts 3-5 Influenza A (RT-PCR) Negative (Negative) Influenza B (RT-PCR) Negative (Negative) RSV (RT-PCR) Negative (Negative) SARS-CoV-2 RNA (RT-PCR) Negative (Negative) Imaging Data Radiologist's impression: Impressions Chest/Abdomen/Pelvis CT 07/07/24 09:37 IMPRESSION: 1. Acute appendicitis. Dr. Key discussed these findings with Dr. Rosas at 9:52 AM. 2. Small pericardial effusion. 3. Status post cystectomy and right lower quadrant ileal conduit formation with mild bilateral hydroureteronephrosis. 4. There are few scattered indeterminate <3 mm pulmonary nodules which are likely sequela of old granulomatous disease. If the patient is low risk for lung cancer, no follow-up is needed. If the patient is high risk (i.e., history of smoking or asbestos or significant radiation exposure), optional follow-up chest CT could be considered at 12 months. Discharge Plan Discharge Clinical Impression: Acute appendicitis Patient Disposition: Acute Care Hospital Condition: Stable Instructions: Antibiotic Form Patient Language: Kazakh Prescriptions: No Action aspirin [Adult Low Dose Aspirin] 81 mg tablet,delayed release (DR/EC) 81 mg PO DAILY vitamin B complex Tablet 1 tablet PO DAILY cholecalciferol (vitamin D3) 25 mcg (1,000 unit) capsule 25 mcg PO DAILY ferrous sulfate 325 mg (65 mg iron) tablet,delayed release (DR/EC) 325 mg PO DAILY cinnamon bark [Cinnamon] 500 mg capsule 500 mg PO DAILY coenzyme Q10 [Co Q-10] 200 mg capsule 200 mg PO DAILY reserateal w/EGCG BYMOUTH ascorbic acid (vitamin C) [Vitamin C] 250 mg tablet 250 mg PO BID Qty: 60 0RF Rx Instructions: Take with iron supplements sodium bicarbonate 650 mg tablet 650 mg PO BID Qty: 60 0RF Rx Instructions: NEEDS APPOINTMENT FOR FURTHER REFILLS pantoprazole 40 mg tablet,delayed release (DR/EC) 40 mg PO DAILY Qty: 30 0RF levothyroxine 50 mcg tablet 50 mcg PO DAILY Qty: 90 1RF valsartan 80 mg tablet 80 mg PO DAILY Qty: 90 1RF atorvastatin 20 mg tablet 20 mg PO DAILY Qty: 90 1RF Follow-up/Referrals: Sharon Nye MD [Primary Care Provider] -
[2024-07-07 08:46] LABS: Add Urine Microscopic? YES; Appearance Urine Cloudy (Clear); Bacteria Urine 4+ /hpf; Bilirubin Urine Negative (Negative); Blood Urine Negative (Negative); Color Urine Yellow (Yellow); Glucose Urine UA Trace mg/dL (Negative); Ketones Urine Negative (Negative); Leukocyte Esterase Ur Trace LEU/UL (Negative); Nitrate Urine Negative (Negative); Protein Urine 3+ mg/dL (Negative); RBC Urine 0-2 /hpf (0-2); Specific Grav Ur 1.012 (1.001-1.035); Squamous Epithelial Cell Urine Occasional /hpf (Few); Urobilinogen Urine 0.2 mg/dL (<2.0); pH Urine >=9.0 (5.0-9.0)
[2024-07-07 08:53] LABS: Lactic Acid Reflex 1.3 mmol/L (0.7-2.0)
[2024-07-07 08:54] LABS: Alanine Aminotransferase 13 U/L (6-35); Albumin Level 4.4 g/dL (3.5-5.1); Alkaline Phosphatase 85 U/L (38-126); Anion Gap 13 mmol/L (4-12); Aspartate Amino Transferase 25 U/L (14-36); Bilirubin,Total 0.5 mg/dL (0.2-1.3); Blood Urea Nitrogen 38 mg/dL (7-17); Calcium 9.2 mg/dL (8.4-10.2); Carbon Dioxide 13 mmol/L (22-30); Chloride 104 mmol/L (98-107); Estimated CRCL calculation 14 ml/min; Estimated Glomerular Filt Rate 17; Glucose 303 mg/dL (65-110); Lipase 65 U/L (23-300); Potassium 4.5 mmol/L (3.4-5.0); Sodium 130 mmol/L (137-145)
[2024-07-07 09:03] LABS: Partial Thromboplastin Time 26.4 Seconds (22.3-36.8)
[2024-07-07 09:23] VITALS: BP 150/71; PULSE 89; RESP 16; O2SAT 98
[2024-07-07] MEDS: HYDROmorphone HCL INJ (*CRX) 1 MG/ML SYR 0.5 MG IV PUSH ×2 (09:23→12:12)
[2024-07-07 09:24] LABS: Influenza A QL RT-PCR Negative (Negative); Influenza B QL RT-PCR Negative (Negative); RSV RNA, RT-PCR Negative (Negative); SARS-CoV-2 RNA PCR Negative (Negative)
[2024-07-07] MEDS: PIPERACILLIN/TAZ 2.25G/NS 50ML 2.25 GM/50 ML BAG IVPB (10:37)
[2024-07-07 11:59] VITALS: BP 140/63; PULSE 85; RESP 16; O2SAT 98
[2024-07-07 13:37] VITALS: BP 116/58; PULSE 73; RESP 17; O2SAT 95
[2024-07-07 15:10] VITALS: BP 116/62; PULSE 89; RESP 18; TEMP 37; O2SAT 98
--- NOTE | 2024-07-07 15:11 | PC.NURSE ---
Irma, with [facility] called to give bed number at [facility]. Bed #6464/. Report #[phone].
== END 2024-07-07 16:09 | disposition short-term general hospital (02) ==
PROVIDERS: Emergency Provider Emergency Medicine; PCP Family Medicine
DX: K35.80 Unspecified acute appendicitis (principal); Z20.822 Contact with and (suspected) exposure to COVID-19; E11.22 Type 2 diabetes mellitus with diabetic chronic kidney disease; I12.9 Hypertensive chronic kidney disease with stage 1 through stage 4 chronic kidney disease, or unspecified chronic kidney disease; N18.4 Chronic kidney disease, stage 4 (severe); E03.9 Hypothyroidism, unspecified; Z93.6 Other artificial openings of urinary tract status; Z85.51 Personal history of malignant neoplasm of bladder; Z85.44 Personal history of malignant neoplasm of other female genital organs; Z85.048 Personal history of other malignant neoplasm of rectum, rectosigmoid junction, and anus; Z92.3 Personal history of irradiation; Z92.21 Personal history of antineoplastic chemotherapy; Z90.6 Acquired absence of other parts of urinary tract; Z79.82 Long term (current) use of aspirin; Z79.899 Other long term (current) drug therapy; I31.39 Other pericardial effusion (noninflammatory); R91.8 Other nonspecific abnormal finding of lung field; N13.30 Unspecified hydronephrosis
CPT/HCPCS: 36415; 71250; 74176; 80053; 81001; 83605; 83690; 85025; 85610; 85730; 87040; 87077; 87086; 87147; 87181; 87186; 87637; 96365; 96366; 96375; 96376; 99285; J1171; J2543